=== PATIENT | male | born 1985 | race Caucasian/White ===

== ENCOUNTER 2020-06-23 13:29 | Outpatient (REF) | payer OTHER, SELFPAY | END 2020-06-23 13:30 | disposition home or self-care (01) | LOC: HO.LAB 13:29 | PROVIDERS: Visit Provider Internal Medicine | DX: Z20.822 Contact with and (suspected) exposure to COVID-19 (principal) | CPT/HCPCS: C9803; U0003; U0005 ==

== ENCOUNTER 2020-07-10 09:57 | Outpatient (REF) | payer OTHER, SELFPAY ==
--- NOTE | ~2020-07-10 | XR_ITS ---
EXAMINATION: XR CERVICAL SPINE CLINICAL INFORMATION: Neck pain COMPARISON: None TECHNIQUE: 3 views of the cervical spine were obtained. FINDINGS: Bone alignment is normal. No fracture or dislocation is seen. Disc spaces are normal. Prevertebral soft tissues are normal. XR/XR cervical spine 2V IMPRESSION: Unremarkable examination.
--- NOTE | ~2020-07-10 | XR_ITS ---
EXAMINATION: XR THORACOLUMBAR SPINE CLINICAL INFORMATION: Pain COMPARISON: None TECHNIQUE: 3 FINDINGS: There is mild curvature of the midthoracic spine to the right. Bone alignment is otherwise normal. No fracture or dislocation is seen. Disc spaces are normal. R spinal soft tissues are normal. XR/XR thoracic spine 2V IMPRESSION: Mild curvature of the midthoracic spine to the right.
--- NOTE | ~2020-07-10 | XR_ITS ---
EXAMINATION: XR CHEST CLINICAL INFORMATION: Cough COMPARISON: Previous chest x-ray most recent September 2015 TECHNIQUE: 2 views of the chest were obtained. FINDINGS: The cardiac and mediastinal contours are normal. The lungs are clear. There is no pleural effusion or pneumothorax. There is an old right posterior eighth rib fracture. Bony structures are otherwise unremarkable. XR/XR chest 2V IMPRESSION: No evidence for acute disease in the chest.
--- NOTE | ~2020-07-10 | XR_ITS ---
EXAMINATION: XR FOOT, LEFT CLINICAL INFORMATION: Pain COMPARISON: Previous x-ray June 2018 TECHNIQUE: AP, lateral, and oblique views of the left foot. FINDINGS: There is evidence of an old calcaneal fracture. No acute fracture or dislocation is seen. Joint spaces are normal. Soft tissues are normal. XR/XR foot LT min 3V IMPRESSION: Old calcaneal fracture. Otherwise unremarkable exam.
--- NOTE | ~2020-07-10 | XR_ITS ---
EXAMINATION: XR SHOULDER, BILATERAL CLINICAL INFORMATION: Pain. COMPARISON: None TECHNIQUE: Bilateral shoulders each 4 views. FINDINGS: Right shoulder: No fracture or dislocation. AC joint is intact. Glenohumeral joint space is maintained. No abnormal soft tissue calcification. Left shoulder: No fracture or dislocation. Glenohumeral joint space is maintained. AC joint is intact. No abnormal soft tissue calcification. XR/XR shoulder LT min 2V IMPRESSION: No evidence of acute osseous abnormality.
--- NOTE | ~2020-07-10 | XR_ITS ---
EXAMINATION: XR SHOULDER, BILATERAL CLINICAL INFORMATION: Pain. COMPARISON: None TECHNIQUE: Bilateral shoulders each 4 views. FINDINGS: Right shoulder: No fracture or dislocation. AC joint is intact. Glenohumeral joint space is maintained. No abnormal soft tissue calcification. Left shoulder: No fracture or dislocation. Glenohumeral joint space is maintained. AC joint is intact. No abnormal soft tissue calcification. XR/XR shoulder RT min 2V IMPRESSION: No evidence of acute osseous abnormality.
[2020-07-10 11:06] LABS: Alanine Aminotransferase 22 U/L (0-40); Albumin Level 4.3 g/dL (3.5-5.0); Alkaline Phosphatase 109 U/L (39-117); Anion Gap 12 (12-20); Aspartate Amino Transferase 23 U/L (5-37); Bilirubin Total 0.5 mg/dL (0.0-1.0); Blood Urea Nitrogen 12 mg/dL (9-16); Calcium 9.4 mg/dL (8.4-10.2); Carbon Dioxide 28 mmol/L (22-29); Chloride 106 mmol/L (96-108); Cholesterol 150 mg/dL; Estimated Glomerular Filt Rate > 60; Glucose Fasting 99 mg/dL (60-99); HDL Cholesterol 33 mg/dL; LDL Cholesterol Calculated 92 mg/dl; Potassium 4.5 mmol/L (3.3-5.1); Sodium 141 mmol/L (135-145); Total Protein 7.1 g/dL (6.5-8.0); Triglycerides 129 mg/dL
[2020-07-11 07:55] LABS: SARS COV2 IgG Negative (Negative)
== END 2020-07-10 09:58 | disposition home or self-care (01) ==
LOC: HO.XRAY 09:57
PROVIDERS: PCP Internal Medicine; Visit Provider Internal Medicine
DX: M54.2 Cervicalgia (principal); R05 Cough; M25.512 Pain in left shoulder; M25.511 Pain in right shoulder; M79.672 Pain in left foot; M54.6 Pain in thoracic spine; E66.3 Overweight; E78.5 Hyperlipidemia, unspecified; Z20.822 Contact with and (suspected) exposure to COVID-19; Z01.84 Encounter for antibody response examination
CPT/HCPCS: 71046; 72040; 72070; 73030; 73630; 80053; 80061; 86769; U0003; U0005

== ENCOUNTER 2021-06-05 12:15 | Outpatient (REF) | payer OTHER, SELFPAY ==
[2021-06-05 12:49] LABS: COVID-19 Test Negative (Negative); IDNOW Serial# 08D9AD1C
== END 2021-06-05 12:16 | disposition home or self-care (01) ==
LOC: HO.LAB 12:15
PROVIDERS: Visit Provider Internal Medicine
DX: Z20.822 Contact with and (suspected) exposure to COVID-19 (principal)
CPT/HCPCS: 87635; C9803

== ENCOUNTER 2021-11-27 16:37 | Outpatient (REF) | payer OTHER, SELFPAY ==
[2021-11-27 17:26] LABS: Influenza A PCR NEGATIVE (Negative); Influenza B PCR NEGATIVE (Negative); Resp Syncy Virus RNA Qual PCR NEGATIVE (Negative); SARS COV2 PCR INHOUSE NEGATIVE (Negative)
== END 2021-11-27 16:38 | disposition home or self-care (01) ==
LOC: HO.LNP 16:37
DX: Z20.822 Contact with and (suspected) exposure to COVID-19 (principal); J06.9 Acute upper respiratory infection, unspecified
CPT/HCPCS: 0241U

== ENCOUNTER 2022-02-26 15:24 | Emergency (ER) | payer MEDICAID, SELFPAY ==
--- NOTE | ~2022-02-26 | XR_ITS ---
EXAMINATION: XR CHEST CLINICAL INFORMATION: Palpitation. Shortness of breath for 3 days. COMPARISON: Chest x-ray 03/11/2021 TECHNIQUE: 2 views of the chest were obtained. FINDINGS: No significant abnormality is noted involving the heart, lungs, mediastinum, bony thorax or soft tissues. XR/XR chest 2V IMPRESSION: Unremarkable examination.
[2022-02-26 15:52] VITALS: BP 127/78; PULSE 76; RESP 16; TEMP 37.2; O2SAT 98; BMI 27.2
--- NOTE | 2022-02-26 15:53 | ECG_ITS ---
Test Reason : PALPITATIONS/SHORTNESS OF BREATH X3 DAYS Blood Pressure : / mmHG Vent. Rate : 075 BPM Atrial Rate : 075 BPM P-R Int : 160 ms QRS Dur : 078 ms QT Int : 356 ms P-R-T Axes : 023 026 012 degrees QTc Int : 397 ms Normal sinus rhythm Normal ECG No previous ECGs available Referred By: Susan Caldwell Electronically Signed By:LOKI AWAN
--- NOTE | 2022-02-26 15:54 | ED_ITS ---
HPI - Arrhythmia/Palpitations General Chief Complaint: Arrhythmia/Palpitations <BRIELLE More - Last Filed: 02/26/22 15:55> Stated Complaint: chest pain <BRIELLE More - Last Filed: 02/26/22 15:55> Time Seen by Provider: 02/26/22 17:38 <BRIELLE More - Last Filed: 02/26/22 15:55> Source: patient and hourly sign language interpreter <BRIELLE Rucker Last Filed: 02/26/22 19:05> Mode of arrival: ambulatory <BRIELLE Rucker Last Filed: 02/26/22 19:05> Limitations: language barrier <BRIELLE Rucker Last Filed: 02/26/22 19:05> History of Present Illness HPI narrative: Patient is a 37 year old assigned male at with a history of GERD pres enting to the emergency department today with intermittent palpitations. Patient states that over the last few days he has had intermittent episodes of palpitations. Patient states that he has been under considerably more stress lately. Patient denies any dizziness, lightheadedness, abdominal pain, nausea, vomiting, fever, chills, blurry vision, double vision, loss of vision, chest pain, difficulty breathing, shortness of breath, back pain, night sweats, pain with urination, increased urinary frequency, increased urinary urgency, blood in his urine or stool, syncope or a near syncopal episode, recent trauma or falls, bowel incontinence, bladder incontinence, bowel retention, bladder retention, or any other complaints at this time. <BRIELLE Rucker - Last Filed: 02/26/22 19:05> MD complaint: heart racing <BRIELLE Rucker - Last Filed: 02/26/22 19:05> Onset (ago): day(s) <BRIELLE Rucker - Last Filed: 02/26/22 19:05> Duration: intermittent <BRIELLE Rucker Last Filed: 02/26/22 19:05> Severity: mild <BRIELLE Rucker Last Filed: 02/26/22 19:05> Associated symptoms: denies other symptoms <BRIELLE Rucker Last Filed: 02/26/22 19:05> Related Data Home Medications: Previous Rx's Medication Instructions Recorded benzonatate 200 mg capsule 200 mg PO TID PRN cough #30 caps 11/27/21 naproxen 500 mg tablet 500 mg PO BID PRN pain 30 days #60 11/29/21 tabs hydroxyzine HCl 25 mg tablet 25 mg PO ONCE PRN anxiety #14 tabs 02/26/22 <BRIELLE More Last Filed: 02/26/22 15:55> Allergies/Adverse Reactions: Allergies Allergy/AdvReac Type Severity Reaction Status Date / Time No Known Allergies Allergy Verified 11/27/21 13:40 [No Known Allergies*] <BRIELLE More Last Filed: 02/26/22 15:55> Review of Systems Constitutional: Constitutional: Reports no additional constitutional complaints, Denies chills, Denies fever(s) and Denies night sweats <BRIELLE Rucker Last Filed: 02/26/22 19:05> Eyes: Eyes: Reports no additional eye complaints, Denies blurry vision, Denies change in vision, Denies diplopia, Denies eye discharge, Denies loss of vision and Denies eye pain <BRIELLE Rucker Last Filed: 02/26/22 19:05> ENT: Denies dizziness <BRIELLE Rucker Last Filed: 02/26/22 19:05> Cardiovascular: Cardiovascular: Reports no additional cardiovascular complaints, Denies chest pain, Reports rapid heart rate, Denies lightheadedness, Denies Loss of Consciousness and Denies dyspnea <BRIELLE Rucker Last Filed: 02/26/22 19:05> Respiratory: Respiratory: Reports no additional respiratory complaints and Denies dyspnea <BRIELLE Rucker Last Filed: 02/26/22 19:05> Gastrointestinal: Gastrointestinal: Reports no additional gastrointestinal complaints, Denies abdominal pain, Denies melena, Denies hematochezia, Denies change in bowel habits and Denies change in stool character <BRIELLE Rucker Last Filed: 02/26/22 19:05> Genitourinary: Genitourinary: Reports no additional male genitourinary complaints, Denies hematuria, Denies oliguria, Denies difficulty urinating, Denies dysuria, Denies urinary frequency, Denies urinary hesitancy, Denies urinary incontinence and Denies urinary urgency <BRIELLE Rucker - Last Filed: 02/26/22 19:05> Musculoskeletal: Musculoskeletal: Reports no additional musculoskeletal complaints, Denies numbness and Denies tingling <BRIELLE Rucker - Last Filed: 02/26/22 19:05> Neurologic: Denies dizziness, Denies loss of vision, Denies numbness and Denies tingling <BRIELLE Rucker - Last Filed: 02/26/22 19:05> Psychiatric: Psychiatric: Reports no additional psychiatric complaints <BRIELLE Rucker - Last Filed: 02/26/22 19:05> Endocrine: Endocrine: Reports no additional endocrine complaints <BRIELLE Rucker - Last Filed: 02/26/22 19:05> Hematologic/Lymphatic: Hematologic/Lymphatic: Reports no additional hematologic/lymphatic complaints <BRIELLE Rucker - Last Filed: 02/11 09/02 19:05> Allergic/Immunologic: Allergic/Immunologic: Reports no additional allergic/immunologic complaints <BRIELLE Rucker - Last Filed: 02/26/22 19:05> [facility] Past Medical History Attestation statement: The following information was validated with the patient. <BRIELLE Rucker - Last Filed: 02/26/22 19:05> Source: old records reviewed and nursing notes reviewed <BRIELLE Rucker - Last Filed: 02/26/22 19:05> Medical History: Medical History Blurry vision Cough GERD (gastroesophageal reflux disease) Hand numbness Left calcaneal fracture Left foot pain Nausea Neck pain Overweight Physical exam Shoulder pain Smoker Viral upper respiratory tract infection with cough <BRIELLE More - Last Filed: 02/26/22 15:55> Surgical History: Surgical History No pertinent past surgical history <BRIELLE Mroe - Last Filed: 02/26/22 15:55> Family History Family History: Family History Father Cirrhosis of liver Mother Diabetes <BRIELLE More - Last Filed: 02/26/22 15:55> Social History Social History: Social History Housing: Apartment Alcohol intake: never Patient Tobacco Use Status: Current everyday Tobacco user Tobacco use type: Cigarette Cigarettes Per Day: 10 e-Cigarette/Vaping Use: Never Used Second Hand Smoke Exposure: No Advance Directives: No Advance Directives Information Provided: No service: No Current occupational status: other <BRIELLE More - Last Filed: 02/26/22 15:55> Physical Exam Vital Signs: Vital Signs: Last Vital Signs Temp 98.9 F 02/26/22 15:52 Pulse 76 02/26/22 15:52 Resp 16 02/26/22 15:52 BP 127/78 02/26/22 15:52 Pulse Ox 98 02/26/22 15:52 O2 Del Method 02/26/22 15:52 BMI result Body Mass Index 27.2 <BRIELLE More - Last Filed: 02/26/22 15:55> Vital Signs: Last Vital Signs Temp 98.9 F 02/26/22 15:52 Pulse 76 02/26/22 15:52 Resp 16 02/26/22 15:52 BP 127/78 02/26/22 15:52 Pulse Ox 98 02/26/22 15:52 O2 Del Method 02/26/22 15:52 BMI result Body Mass Index 27.2 <BRIELLE Rucker - Last Filed: 02/26/22 19:05> Const: General: cooperative, no acute distress, alert and awake <BRIELLE Rucker - Last Filed: 02/26/22 19:05> Nutritional Appearance: well nourished <BRIELLE Rucker - Last Filed: 1 04/29/21 19:05> Orientation/consciousness: patient oriented x3 <BRIELLE Rucker - Last Filed: 02/26/22 19:05> Limitations: no limitations <BRIELLE Rucker - Last Filed: 02/26/22 19:05> HEENT: Head: Yes normal to inspection and Yes atraumatic <BRIELLE Rucker - Last Filed: 02/26/22 19:05> Ears: hearing grossly normal bilaterally and external ears normal <BRIELLE Rucker - Last Filed: 02/26/22 19:05> General nose exam: Normal external nose present, no nasal discharge noted and no epistaxis <Amaya Rain ND - Last Filed: 02/26/22 19:05> Face and sinus: Yes normal facial exam, No abrasion and No laceration <Amaya Rain ND - Last Filed: 02/26/22 19:05> Mouth: Normal oral and palatal mucosa present, no drooling and no muffled voice <Amaya Dietrichteresa ND - Last Filed: 02/26/22 19:05> Eyes: General: appearance normal, both eyes and all related structures <Amaya Dietrichteresa ND - Last Filed: 02/26/22 19:05> Periorbital: periorbital findings normal <Amaya Dietrichteresa ND - Last Filed: 02/26/22 19:05> Eyelids: Yes eyelids normal <Amaya Dietrichtersea ND - Last Filed: 02/26/22 19:05> Conjunctivae: conjunctivae normal <Amaya Dietrichteresa ND - Last Filed: 02/26/22 19:05> Pupils: Equal, round and reactive pupils present <Amaya Dietrichteresa ND - Last Filed: 02/26/22 19:05> EOM: EOMs intact bilaterally <Amaya Dietrichteresa ND - Last Filed: 02/26/22 19:05> Neck: Neck: Yes normal visual inspection, Yes full ROM and Yes no lymphadenopathy <Amaya Dietrichteresa ND - Last Filed: 02/26/22 19:05> Chest: Chest palpation & inspection: normal inspection of the chest <Amaya Briseyda ND - Last Filed: 02/26/22 19:05> Resp: Effort & Inspection: normal respiratory effort and able to speak in complete sentences <Amaya Dietrichteresa ND - Last Filed: 02/26/22 19:05> Auscultation: clear to auscultation bilaterally <Amaya Dietrichteresa ND - Last Filed: 02/26/22 19:05> Cardio: Rate: regular rate <Amaya Briseyda ND - Last Filed: 02/26/22 19:05> Rhythm: regular rhythm <Amaya Briseyda ND - Last Filed: 02/26/22 19:05> GI: Inspection: Yes normal to inspection <Amaya RainBRIELLE - Last Filed: 02/26/22 19:05> Neuro: General: patient oriented x3 and moves all extremities <Amaya RainBRIELLE - Last Filed: 02/26/22 19:05> Cranial nerves: Yes Equal, round and reactive pupils present <Amaya RainBRIELLE - Last Filed: 02/26/22 19:05> Cognition (Neuro): normal cognition <Amaya DietrichBRIELLE moore - Last Filed: 02/26/22 19:05> Motor exam (neuro): 5/5 motor strength present throughout <Amaya RainBRIELLE - Last Filed: 02/26/22 19:05> Sensory Exam: Normal double simultaneous stimulation for sensation <Amaya DietrichBRIELLE moore - Last Filed: 02/26/22 19:05> Coordination: [id number] test normal <Amaya RainBRIELLE - Last Filed: 02/26/22 19:05> Extrem: General: Yes normal to inspection, Yes full ROM and Yes capillary refill normal <Amaya RainBRIELLE - Last Filed: 02/26/22 19:05> Psych: Appearance: grossly normal <Amaya RainBRIELLE - Last Filed: 02/26/22 19:05> Mental Status: mental status grossly normal <Amaya DietrichBRIELLE moore - Last Filed: 02/26/22 19:05> Affect: normal affect <Amaya DietrichBRIELLE moore - Last Filed: 02/26/22 19:05> Attitude: cooperative <Amaya DietrichBRIELLE moore - Last Filed: 02/26/22 19:05> Thought process: Normal thought process present <Amaya DietrichBRIELLE moore - Last Filed: 02/26/22 19:05> Thought content: Normal thought content present <Amaya DietrichBRIELLE moore - Last Filed: 02/26/22 19:05> Insight: Good insight present (Psych) <Amayabc DietrichBRIELLE moore - Last Filed: 02/26/22 19:05> Course Course Course Narrative: RME-16PM - 37yM c PMHx of GERD who is presenting to the ER with complaints of palpitations for the past 3 days with associated shortness of breath. Reports intermittent dizziness. Denies any change in vision, jaw pain, nausea/vomiting, chest pain, dyspnea on exertion, orthopnea, abdominal pain, diarrhea constipation, lower extremity edema or calf tenderness or any other symptoms complaints or concerns at this time. Plan: labs, EKG, chest x-ray, COVID/RSV/flu swab. Patient stable sent back to the waiting room for further evaluation treatment to the main ER. <BRIELLE More - Last Filed: 02/26/22 15:55> Medical Decision Making Medical Decision Making [facility] Narrative: Patient is a 37 year old assigned male at with a history of GERD presenting to the emergency department today with intermittent palpitations. Patient's physical exam was unremarkable. Patient's blood work was unremarkable. Patient's EKG was unremarkable. Patient's chest x-ray showed no acute process. I explained my physical exam findings as well as all test results to the patient. I answered all questions asked by the patient. I stressed the importance of the patient taking his medication as prescribed. I stressed the importance of the patient following up with his primary care provider and a internet marketing assistant. I stressed the importance of the patient returning to the emergency department immediately if his symptoms were to worsen or if he were to develop any dizziness, shortness of breath, difficulty breathing, chest pain, blurry vision, loss of vision, nausea, vomiting, abdominal pain, fever, chills, back pain, or any other complaints. Patient verbalized agreement and understanding with this treatment plan and discharge. <BRIELLE Rucker - Last Filed: 02/26/22 19:05> Differential Diagnosis Differential Diagnoses: The differential diagnosis associated with the presentation includes <BRIELLE Rucker - Last Filed: 02/26/22 19:05> palpitations, anxiety <BRIELLE Rucker - Last Filed: 02/26/22 19:05> Lab Data [facility] Lab Attestation statement: I reviewed the patient's lab results. <BRIELLE Rucker - Last Filed: 02/26/22 19:05> Result Diagrams: : 02/26/22 16:50 02/26/22 16:50 <BRIELLE More - Last Filed: 02/26/22 15:55> Labs: Lab Results 02/26/22 02/26/22 02/26/22 Range/Units 16:50 16:50 16:50 WBC 11.4 H (4.8-10.8) X10*3/uL RBC 5.21 (4.60-5.80) X10*6/uL Hgb 13.9 L (14.0-18.0) g/dl Hct 42.7 (42.0-52.0) % MCV 82.0 (80.0-98.0) fL MCH 26.7 L (27.0-33.0) pg MCHC 32.6 (31.0-36.0) g/dl RDW 13.2 (11.0-16.0) % Plt Count 308 (160-400) X10*3/uL MPV 10.0 (9.4-12.4) fL Immature Gran % (Auto) 0.4 (0.0-0.4) % Neut % (Auto) 55.5 (45-73) % Lymph % (Auto) 30.6 (20-40) % [place] % (Auto) 8.2 (2-11) % Eos % (Auto) 4.9 H (0-4) % Baso % (Auto) 0.4 (0-2) % Lymph # (Auto) 3.5 (1.2-4.9) X10*3/uL [place] # (Auto) 0.9 (0.1-1.2) X10*3/uL Eos # (Auto) 0.6 H (0.0-0.4) X10*3/uL Baso # (Auto) 0.0 (0.0-0.2) X10*3/uL Abs Immat Gran (auto) 0.05 H (0.00-0.03) X10*3/uL Absolute Neuts (auto) 6.3 (2.0-8.3) x10*3/uL Absolute Nucleated RBC 0.000 (0.0-0.012) X10*3/uL Nucleated RBC % (auto) 0.0 (0.0-0.2) /100WBC PT 12.0 (10.0-13.1) SEC INR 1.0 (0.9-1.1) Sodium 140 (135-145) mmol/L Potassium 4.2 (3.3-5.1) mmol/L Chloride 105 (96-108) mmol/L Carbon Dioxide 27 (22-29) mmol/L Anion Gap 12 (12-20) BUN 13 (9-16) mg/dL Creatinine 0.98 (0.5-1.4) mg/dL Estim Creat Clear Calc 104.4 Estimated GFR > 60 Random Glucose 90 (60-115) mg/dL Calcium 9.6 (8.4-10.2) mg/dL Magnesium 1.9 (1.6-2.6) mg/dL Total Bilirubin 0.2 (0.0-1.0) mg/dL AST 26 (5-37) U/L ALT 38 (0-40) U/L Alkaline Phosphatase 124 H (39-117) U/L Troponin I High Sens (<3.5-35.0) ng/L Total Protein 7.1 (6.5-8.0) g/dL Albumin 4.4 (3.5-5.0) g/dL TSH 1.42 (0.32-4.0) uIU/mL Urine Color Urine Appearance Urine pH (5.0-9.0) Ur Specific Nettie (1.005-1.025) Urine Protein (Neg-Trace) mg/dL Urine Glucose (UA) (Negative) mg/dL Urine Ketones (Negative) mg/dL Urine Blood (Negative) Urine Nitrite (Negative) Ur Leukocyte Esterase (Negative) Influenza Type A (PCR) (Negative) Influenza Type B (PCR) (Negative) RSV RNA Qual (PCR) (Negative) SARS-CoV-2 RNA (RT-PCR) (Negative) 02/26/22 02/26/22 02/26/22 Range/Units 16:50 16:50 17:05 WBC (4.8-10.8) X10*3/uL RBC (4.60-5.80) X10*6/uL Hgb (14.0-18.0) g/dl Hct (42.0-52.0) % MCV (80.0-98.0) fL MCH (27.0-33.0) pg MCHC (31.0-36.0) g/dl RDW (11.0-16.0) % Plt Count (160-400) X10*3/uL MPV (9.4-12.4) fL Immature Gran % (Auto) (0.0-0.4) % Neut % (Auto) (45-73) % Lymph % (Auto) (20-40) % [place] % (Auto) (2-11) % Eos % (Auto) (0-4) % Baso % (Auto) (0-2) % Lymph # (Auto) (1.2-4.9) X10*3/uL [place] # (Auto) (0.1-1.2) X10*3/uL Eos # (Auto) (0.0-0.4) X10*3/uL Baso # (Auto) (0.0-0.2) X10*3/uL Abs Immat Gran (auto) (0.00-0.03) X10*3/uL Absolute Neuts (auto) (2.0-8.3) x10*3/uL Absolute Nucleated RBC (0.0-0.012) X10*3/uL Nucleated RBC % (auto) (0.0-0.2) /100WBC PT (10.0-13.1) SEC INR (0.9-1.1) Sodium (135-145) mmol/L Potassium (3.3-5.1) mmol/L Chloride (96-108) mmol/L Carbon Dioxide (22-29) mmol/L Anion Gap (12-20) BUN (9-16) mg/dL Creatinine (0.5-1.4) mg/dL Estim Creat Clear Calc Estimated GFR Random Glucose (60-115) mg/dL Calcium (8.4-10.2) mg/dL Magnesium (1.6-2.6) mg/dL Total Bilirubin (0.0-1.0) mg/dL AST (5-37) U/L ALT (0-40) U/L Alkaline Phosphatase (39-117) U/L Troponin I High Sens < 3.5 (<3.5-35.0) ng/L Total Protein (6.5-8.0) g/dL Albumin (3.5-5.0) g/dL TSH (0.32-4.0) uIU/mL Urine Color Yellow Urine Appearance Clear Urine pH 5.5 (5.0-9.0) Ur Specific Nettie 1.015 (1.005-1.025) Urine Protein Negative (Neg-Trace) mg/dL Urine Glucose (UA) Negative (Negative) mg/dL Urine Ketones Negative (Negative) mg/dL Urine Blood Negative (Negative) Urine Nitrite Negative (Negative) Ur Leukocyte Esterase Negative (Negative) Influenza Type A (PCR) NEGATIVE (Negative) Influenza Type B (PCR) NEGATIVE (Negative) RSV RNA Qual (PCR) NEGATIVE (Negative) SARS-CoV-2 RNA (RT-PCR) NEGATIVE (Negative) <BRIELLE More - Last Filed: 02/26/22 15:55> Lab Results 02/26/22 02/26/22 02/26/22 Range/Units 16:50 16:50 16:50 WBC 11.4 H (4.8-10.8) X10*3/uL RBC 5.21 (4.60-5.80) X10*6/uL Hgb 13.9 L (14.0-18.0) g/dl Hct 42.7 (42.0-52.0) % MCV 82.0 (80.0-98.0) fL MCH 26.7 L (27.0-33.0) pg MCHC 32.6 (31.0-36.0) g/dl RDW 13.2 (11.0-16.0) % Plt Count 308 (160-400) X10*3/uL MPV 10.0 (9.4-12.4) fL Immature Gran % (Auto) 0.4 (0.0-0.4) % Neut % (Auto) 55.5 (45-73) % Lymph % (Auto) 30.6 (20-40) % [place] % (Auto) 8.2 (2-11) % Eos % (Auto) 4.9 H (0-4) % Baso % (Auto) 0.4 (0-2) % Lymph # (Auto) 3.5 (1.2-4.9) X10*3/uL [place] # (Auto) 0.9 (0.1-1.2) X10*3/uL Eos # (Auto) 0.6 H (0.0-0.4) X10*3/uL Baso # (Auto) 0.0 (0.0-0.2) X10*3/uL Abs Immat Gran (auto) 0.05 H (0.00-0.03) X10*3/uL Absolute Neuts (auto) 6.3 (2.0-8.3) x10*3/uL Absolute Nucleated RBC 0.000 (0.0-0.012) X10*3/uL Nucleated RBC % (auto) 0.0 (0.0-0.2) /100WBC PT 12.0 (10.0-13.1) SEC INR 1.0 (0.9-1.1) Sodium 140 (135-145) mmol/L Potassium 4.2 (3.3-5.1) mmol/L Chloride 105 (96-108) mmol/L Carbon Dioxide 27 (22-29) mmol/L Anion Gap 12 (12-20) BUN 13 (9-16) mg/dL Creatinine 0.98 (0.5-1.4) mg/dL Estim Creat Clear Calc 104.4 Estimated GFR > 60 Random Glucose 90 (60-115) mg/dL Calcium 9.6 (8.4-10.2) mg/dL Magnesium 1.9 (1.6-2.6) mg/dL Total Bilirubin 0.2 (0.0-1.0) mg/dL AST 26 (5-37) U/L ALT 38 (0-40) U/L Alkaline Phosphatase 124 H (39-117) U/L Troponin I High Sens (<3.5-35.0) ng/L Total Protein 7.1 (6.5-8.0) g/dL Albumin 4.4 (3.5-5.0) g/dL TSH 1.42 (0.32-4.0) uIU/mL Urine Color Urine Appearance Urine pH (5.0-9.0) Ur Specific [place]ettie (1.005-1.025) Urine Protein (Neg-Trace) mg/dL Urine Glucose (UA) (Negative) mg/dL Urine Ketones (Negative) mg/dL Urine Blood (Negative) Urine Nitrite (Negative) Ur Leukocyte Esterase (Negative) Influenza Type A (PCR) (Negative) Influenza Type B (PCR) (Negative) RSV RNA Qual (PCR) (Negative) SARS-CoV-2 RNA (RT-PCR) (Negative) 02/26/22 02/26/22 02/26/22 Range/Units 16:50 16:50 17:05 WBC (4.8-10.8) X10*3/uL RBC (4.60-5.80) X10*6/uL Hgb (14.0-18.0) g/dl Hct (42.0-52.0) % MCV (80.0-98.0) fL MCH (27.0-33.0) pg MCHC (31.0-36.0) g/dl RDW (11.0-16.0) % Plt Count (160-400) X10*3/uL MPV (9.4-12.4) fL Immature Gran % (Auto) (0.0-0.4) % Neut % (Auto) (45-73) % Lymph % (Auto) (20-40) % [place] % (Auto) (2-11) % Eos % (Auto) (0-4) % Baso % (Auto) (0-2) % Lymph # (Auto) (1.2-4.9) X10*3/uL [place] # (Auto) (0.1-1.2) X10*3/uL Eos # (Auto) (0.0-0.4) X10*3/uL Baso # (Auto) (0.0-0.2) X10*3/uL Abs Immat Gran (auto) (0.00-0.03) X10*3/uL Absolute Neuts (auto) (2.0-8.3) x10*3/uL Absolute Nucleated RBC (0.0-0.012) X10*3/uL Nucleated RBC % (auto) (0.0-0.2) /100WBC PT (10.0-13.1) SEC INR (0.9-1.1) Sodium (135-145) mmol/L Potassium (3.3-5.1) mmol/L Chloride (96-108) mmol/L Carbon Dioxide (22-29) mmol/L Anion Gap (12-20) BUN (9-16) mg/dL Creatinine (0.5-1.4) mg/dL Estim Creat Clear Calc Estimated GFR Random Glucose (60-115) mg/dL Calcium (8.4-10.2) mg/dL Magnesium (1.6-2.6) mg/dL Total Bilirubin (0.0-1.0) mg/dL AST (5-37) U/L ALT (0-40) U/L Alkaline Phosphatase (39-117) U/L Troponin I High Sens < 3.5 (<3.5-35.0) ng/L Total Protein (6.5-8.0) g/dL Albumin (3.5-5.0) g/dL TSH (0.32-4.0) uIU/mL Urine Color Yellow Urine Appearance Clear Urine pH 5.5 (5.0-9.0) Ur Specific [place] 1.015 (1.005-1.025) Urine Protein Negative (Neg-Trace) mg/dL Urine Glucose (UA) Negative (Negative) mg/dL Urine Ketones Negative (Negative) mg/dL Urine Blood Negative (Negative) Urine Nitrite Negative (Negative) Ur Leukocyte Esterase Negative (Negative) Influenza Type A (PCR) NEGATIVE (Negative) Influenza Type B (PCR) NEGATIVE (Negative) RSV RNA Qual (PCR) NEGATIVE (Negative) SARS-CoV-2 RNA (RT-PCR) NEGATIVE (Negative) <BRIELLE Rucker - Last Filed: 02/26/22 19:05> Independent Interpretation I performed an independent interpretation of an: EKG <BRIELLE Rucker - Last Filed: 02/26/22 19:05> Interpretation: Vent. Rate: 075 BPM ? ? Atrial Rate: 075 BPM P-R Int: 160 ms? QRS Dur: 078 ms QT Int: 356 ms ? ? ? P-R-T Axes: 023 026 012 degrees QTc Int: 397 ms ? Normal sinus rhythm Normal ECG No previous ECGs available DD/ 1656 <BRIELLE Rucker - Last Filed: 02/26/22 19:05> Radiology Impression Discussion of test interpretation with radiology: I have reviewed the radiologist's reading. <BRIELLE Rucker - Last Filed: 02/26/22 19:05> Radiologist Impression: EXAMINATION: XR CHEST CLINICAL INFORMATION: Palpitation. Shortness of breath for 3 days. COMPARISON: Chest x-ray 03/11/2021 TECHNIQUE: 2 views of the chest were obtained. FINDINGS: No significant abnormality is noted involving the heart, lungs, mediastinum, bony thorax or soft tissues. XR/XR chest 2V IMPRESSION: Unremarkable examination. Dictated By: Lee Purcell MD Signed By: Electronically signed by Lee Purcell MD 02/26/22 1617 <BRIELLE Rucker - Last Filed: 02/26/22 19:05> Discharge Plan Discharge Clinical Impression: Heart palpitations <BRIELLE More Last Filed: 02/26/22 15:55> Patient Disposition: Home, Self-Care <BRIELLE More Last Filed: 02/26/22 15:55> Instructions: Heart Palpitations (DC) <BRIELLE More Last Filed: 02/26/22 15:55> Additional Instructions: Follow up with your primary care provider and a cardiologst. Return to the emergency department immediately if your symptoms worsen or if you develop any dizziness, shortness of breath, difficulty breathing, chest pain, blurry vision, loss of vision, nausea, vomiting, abdominal pain, fever, chills, back pain, or any other complaints. Becky un seguimiento con rosales proveedor de atenci?n primaria y un cardi?logo. Regrese al departamento de emergencias de inmediato si alexia s?ntomas empeoran o si presenta mareos, falta de aire, dificultad para respirar, dolor de pecho, visi?n borrosa, p?rdida de la visi?n, n?useas, v?mitos, dolor abdominal, fiebre, escalofr?os, dolor de espalda o cualquier otras quejas. <BRIELLE More - Last Filed: 02/26/22 15:55> Prescriptions: New hydroxyzine HCl 25 mg tablet 25 mg PO ONCE PRN (Reason: anxiety) Qty: 14 0RF No Action naproxen 500 mg tablet 500 mg PO BID PRN (Reason: pain) 30 Days Qty: 60 0RF benzonatate 200 mg capsule 200 mg PO TID PRN (Reason: cough) Qty: 30 0RF <BRIELLE More Last Filed: 02/26/22 15:55> Referrals: [facility] [Provider Group] (Call to establish and follow up with a internet marketing assistant. Llame para establecer y hacer un seguimiento con tomas cardi?loga.) Shayla Waggoner MD [Primary Care Provider] - <BRIELLE More - Last Filed: 02/26/22 15:55> Stand Alone Forms: Work/School Release <BRIELLE More - Last Filed: 02/26/22 15:55> Interventions: ED Discharge Assessment Last Done: 02/26/22 18:12 <BRIELLE More - Last Filed: 02/26/22 15:55> Discharge Date/Time: 02/26/22 18:14 <BRIELLE More - Last Filed: 02/26/22 15:55> Print Language: Slovenian <BRIELLE More - Last Filed: 02/26/22 15:55>
[2022-02-26 16:58] LABS: MANUAL DIFF FLAG NO
[2022-02-26 17:04] LABS: Basophils Percent Auto 0.4 % (0-2); Eosinophils Absolute Auto 0.6 X10*3/uL (0.0-0.4); Eosinophils Percent Auto 4.9 % (0-4); Hematocrit 42.7 % (42.0-52.0); Hemoglobin 13.9 g/dl (14.0-18.0); Imm Gran Abs Auto 0.05 X10*3/uL (0.00-0.03); Imm Gran Pct Auto 0.4 % (0.0-0.4); Lymphocytes Absolute Auto 3.5 X10*3/uL (1.2-4.9); Lymphocytes Percent Auto 30.6 % (20-40); Mean Corpuscular HGB Conc 32.6 g/dl (31.0-36.0); Mean Corpuscular Hemoglobin 26.7 pg (27.0-33.0); Monocytes Absolute Auto 0.9 X10*3/uL (0.1-1.2); Monocytes Percent Auto 8.2 % (2-11); Neutrophils Absolute Auto 6.3 x10*3/uL (2.0-8.3); Neutrophils Percent Auto 55.5 % (45-73); Platelet Count 308 X10*3/uL (160-400); Red Blood Count 5.21 X10*6/uL (4.60-5.80); Red Cell Distribution Width 13.2 % (11.0-16.0); White Blood Count 11.4 X10*3/uL (4.8-10.8)
[2022-02-26 17:23] LABS: Appearance Urine Clear; Color Urine Yellow; Glucose Urine UA Negative (Negative); Leukocyte Esterase Urine Negative (Negative); Nitrite Urine Negative (Negative); PH 5.5 (5.0-9.0); Specific Gravity - Urine 1.015 (1.005-1.025); Urine Blood Negative (Negative); Urine Ketones Negative (Negative); Urine Protein Negative (Neg-Trace)
[2022-02-26 17:26] LABS: Troponin-I High Sensitivity < 3.5 ng/L (<3.5-35.0)
[2022-02-26 17:36] LABS: Influenza A PCR NEGATIVE (Negative); Influenza B PCR NEGATIVE (Negative); Resp Syncy Virus RNA Qual PCR NEGATIVE (Negative); SARS COV2 PCR INHOUSE NEGATIVE (Negative)
[2022-02-26 17:42] LABS: Alanine Aminotransferase 38 U/L (0-40); Albumin Level 4.4 g/dL (3.5-5.0); Alkaline Phosphatase 124 U/L (39-117); Anion Gap 12 (12-20); Aspartate Amino Transferase 26 U/L (5-37); Bilirubin Total 0.2 mg/dL (0.0-1.0); Blood Urea Nitrogen 13 mg/dL (9-16); Calcium 9.6 mg/dL (8.4-10.2); Carbon Dioxide 27 mmol/L (22-29); Chloride 105 mmol/L (96-108); Creatinine Clr Calc Pharmacy 104.4; Estimated Glomerular Filt Rate > 60; Glucose Random 90 mg/dL (60-115); Magnesium 1.9 mg/dL (1.6-2.6); Potassium 4.2 mmol/L (3.3-5.1); Sodium 140 mmol/L (135-145); TSH reflex Free T4 1.42 uIU/mL (0.32-4.0); Total Protein 7.1 g/dL (6.5-8.0)
== END 2022-02-26 18:14 | disposition home or self-care (01) ==
PROVIDERS: Physician Assistant Medical; Emergency Provider Student in an Organized Health Care Education/Training Program; PCP Internal Medicine
DX: R00.2 Palpitations (principal); Z20.822 Contact with and (suspected) exposure to COVID-19; F17.210 Nicotine dependence, cigarettes, uncomplicated
CPT/HCPCS: 0241U; 36415; 71046; 80053; 81003; 83735; 84443; 84484; 85025; 85610; 93005; 99283

== ENCOUNTER 2022-10-10 06:50 | Emergency (ER) | payer MEDICAID, SELFPAY ==
[2022-10-10 07:02] VITALS: BP 138/92; PULSE 92; RESP 18; TEMP 36.1; O2SAT 98; BMI 31.4
--- NOTE | 2022-10-10 07:31 | ED.EYEPROB ---
HPI - Eye Problem General Chief complaint: Eye Problems Stated complaint: Eye issues Time Seen by Provider: 10/10/22 07:12 Source: patient and behavioral health clinician Mode of arrival: ambulatory History of Present Illness HPI Narrative: 37-year-old male who states that he was shaving last night and got shaving cream into both eyes, rinse the mouth a little bit that and went to sleep and woke up this morning with significant bilateral eye pain in burning that is worse with opening his eyes and denies any contact lens use or traumatic injury to the eye. Related Data Previous Rx's Medication Instructions Recorded benzonatate 200 mg capsule 200 mg PO TID PRN cough #30 caps 11/27/21 naproxen 500 mg tablet 500 mg PO BID PRN pain 30 days #60 11/29/21 tabs hydroxyzine HCl 25 mg tablet 25 mg PO ONCE PRN anxiety #14 tabs 02/26/22 Allergies Allergy/AdvReac Type Severity Reaction Status Date / Time No Known Allergies Allergy Verified 10/10/22 07:05 [No Known Allergies*] Review of Systems Review of Systems: Pertinent positives and negatives as stated in HPI PMFSH Past Medical History Source: nursing notes reviewed Medical History Blurry vision Cough GERD (gastroesophageal reflux disease) Hand numbness Left calcaneal fracture Left foot pain Nausea Neck pain Overweight Physical exam Shoulder pain Smoker Viral upper respiratory tract infection with cough Surgical History No pertinent past surgical history Family History Family History Father Cirrhosis of liver Mother Diabetes Social History Social History Housing: Apartment Alcohol intake: never Patient Tobacco Use Status: Current everyday Tobacco user Tobacco use type: Cigarette Cigarettes Per Day: 10 e-Cigarette/Vaping Use: Never Used Second Hand Smoke Exposure: No Advance Directives: No Advance Directives Information Provided: Yes service: No Current occupational status: other Physical Exam Vital Signs: Vital Signs: Last Vital Signs Temp 97 F 10/10/22 07:02 Pulse 92 10/10/22 07:02 Resp 18 10/10/22 07:02 BP 138/92 H 10/10/22 07:02 Pulse Ox 98 10/10/22 07:02 O2 Del Method Room Air 10/10/22 07:02 BMI result Body Mass Index 31.4 VITAL SIGNS: Reviewed. GENERAL: Well developed, well nourished, in no acute distress. HEAD: Normocephalic/atraumatic EYES: PERRLA, EOMI, bilateral conjunctival injection, no nystagmus, no mid distance paralyze pupil, no cloudiness of the pupil EARS: Ext canals without abnormality NOSE: Nares patent bilateral OROPHARYNX: no oral lesions noted, posterior pharynx clear NECK: Supple, no adenopathy LUNGS: Normal breath sounds. No adventitious sounds or accessory muscle use. SpO2<98> CARDIOVASCULAR: Regular rate and rhythm without noted murmurs ABDOMEN: Soft, non-tender, non-distended with bowel sounds. MUSCULOSKELETAL: No tenderness, deformities, or effusions noted on gross inspection. EXTREMITIES: No cyanosis, clubbing or edema. SKIN: Inspection of the skin reveals no rashes NEUROLOGIC: Alert and oriented x 4. Strength and sensation to light touch were grossly intact x 4. Medications Administered Generic Name Dose Route Start Last Admin Trade Name Freq PRN Reason Stop Dose Admin Sodium Chloride 1,000 mls @ 999 mls/hr 10/10/22 07:45 10/10/22 08:07 Ns IV 10/10/22 08:45 Infused .Q1H1M ESTEFANY Infusion Medical Decision Making Medical Decision Making [facility] Narrative: 37-year-old male with history and clinical presentation of having gotten shaving cream into both eyes and went sleep and then woke up with burning sensation in both eyes. Will flush with 1 L of normal saline and re-evaluate, low clinical suspicion for any significant ocular injury. On re-evaluation patient is feeling much improved after a 500 cc I irrigation and will further receive recommendations to uses an [id number] eyedrops for additional symptom relief. Differential Diagnosis Differential Diagnoses: The differential diagnosis associated with the presentation includes Please see the discussion above Discharge Plan Discharge Clinical Impression: Pain of both eyes Patient Disposition: Home, Self-Care Instructions: Eye Pain (ED) Additional Instructions: 1. Reanudar todos los medicamentos caseros seg?n lo prescrito. 2. Recomiende las gotas oculares Visine de venta melissa para los ojos irritados y util?celas faustino se indica en el empaque exterior. 3. El lunes por la ma?jillian recomiende seguimiento con cualquier oftalm?logo. Regrese a la karime de emergencias si los s?ntomas empeoran. 1. Resume all home medications as prescribed. 2. Recommend hkjz-thi-sruouuz Visine eyedrops for your irritated eyes and use as directed on the outside packaging. 3. On Tuesday morning recommend follow-up with any eye doctor. Return to the ER for any worsening symptoms. Prescriptions: No Action naproxen 500 mg tablet 500 mg PO BID PRN (Reason: pain) 30 Days Qty: 60 0RF hydroxyzine HCl 25 mg tablet 25 mg PO ONCE PRN (Reason: anxiety) Qty: 14 0RF benzonatate 200 mg capsule 200 mg PO TID PRN (Reason: cough) Qty: 30 0RF Referrals: [facility] [Primary Care Provider] - Print Language: Moroccan
[2022-10-10] MEDS: 0.9 % Sodium Chloride 1,000 ML 999 ML IV (07:50)
--- NOTE | 2022-10-10 08:09 | PC.NURSE ---
this nurse began eye irrigation with the patient, this patient briefly tolerated irrigation in intervals, eyes were flushed as well as the patient tolerated. patient stated he is now able to open his eyes but feels as if he has sand in them but feels better than previously, pt refusing further irrigation, pt asking if there is anything numbing for his eyes until this passes, provider notified, pt to be discharged shortly.
[2022-10-10] MEDS: hydrOXYzine HCL 25 MG TABLET PO (08:21)
[2022-10-10 08:28] VITALS: BP 141/86; PULSE 93; RESP 18; TEMP 36.2; O2SAT 96
== END 2022-10-10 08:42 | disposition home or self-care (01) ==
PROVIDERS: Emergency Provider Student in an Organized Health Care Education/Training Program
DX: H57.13 Ocular pain, bilateral (principal); F17.210 Nicotine dependence, cigarettes, uncomplicated; Z71.6 Tobacco abuse counseling
CPT/HCPCS: 99283; 99284

== ENCOUNTER 2022-12-03 11:19 | Outpatient (REF) | payer MEDICAID, SELFPAY ==
[2022-12-03 13:09] LABS: MANUAL DIFF FLAG NO
[2022-12-03 13:26] LABS: Basophils Absolute Auto 0.1 X10*3/uL (0.0-0.2); Basophils Percent Auto 0.6 % (0-2); Eosinophils Absolute Auto 0.3 X10*3/uL (0.0-0.4); Eosinophils Percent Auto 3.9 % (0-4); Hematocrit 42.5 % (42.0-52.0); Hemoglobin 14.1 g/dl (14.0-18.0); Imm Gran Abs Auto 0.04 X10*3/uL (0.00-0.03); Imm Gran Pct Auto 0.5 % (0.0-0.4); Lymphocytes Absolute Auto 2.4 X10*3/uL (1.2-4.9); Mean Corpuscular HGB Conc 33.2 g/dl (31.0-36.0); Mean Corpuscular Volume 81.3 fL (80.0-98.0); Mean Platelet Volume 10.5 fL (9.4-12.4); Monocytes Absolute Auto 0.6 X10*3/uL (0.1-1.2); Monocytes Percent Auto 7.6 % (2-11); Neutrophils Absolute Auto 4.7 x10*3/uL (2.0-8.3); Neutrophils Percent Auto 58.4 % (45-73); Platelet Count 326 X10*3/uL (160-400); Red Blood Count 5.23 X10*6/uL (4.60-5.80); Red Cell Distribution Width 13.8 % (11.0-16.0); White Blood Count 8.1 X10*3/uL (4.8-10.8)
[2022-12-03 14:13] LABS: Alanine Aminotransferase 84 U/L (0-40); Albumin Level 4.2 g/dL (3.5-5.0); Alkaline Phosphatase 144 U/L (39-117); Anion Gap 13 (12-20); Aspartate Amino Transferase 40 U/L (5-37); Bilirubin Direct 0.1 mg/dL (0.0-0.5); Bilirubin Total 0.4 mg/dL (0.0-1.0); Blood Urea Nitrogen 12 mg/dL (9-16); Calcium 9.2 mg/dL (8.4-10.2); Carbon Dioxide 21 mmol/L (22-29); Chloride 109 mmol/L (96-108); Estimated Glomerular Filt Rate > 60; Glucose Random 106 mg/dL (60-115); Potassium 3.7 mmol/L (3.3-5.1); Sodium 139 mmol/L (135-145); Total Protein 7.4 g/dL (6.5-8.0)
[2022-12-03 14:25] LABS: TSH reflex Free T4 1.01 uIU/mL (0.32-4.0)
[2022-12-05 22:28] LABS: TS Negative Control Passed; TS Panel A 0; TS Panel B 0; TS Positive Control Passed; TSpotTB Negative (Negative)
[2022-12-06 03:28] LABS: Syphilis Screen Nonreactive (Nonreactive)
[2022-12-06 03:37] LABS: HIV AB/AG Nonreactive (Nonreactive); HIV Num 1 0.05 S/CO (0.00-0.99); ~HepC Num1 0.07 S/CO (0.00-0.79); ~Hepatitis C Antibody Nonreactive (Nonreactive)
== END 2022-12-03 11:20 | disposition home or self-care (01) ==
LOC: HO.HHCL 11:19
PROVIDERS: Visit Provider Emergency Medicine
DX: R00.2 Palpitations (principal); Z11.1 Encounter for screening for respiratory tuberculosis
CPT/HCPCS: 36415; 80048; 80076; 84443; 85025; 86481; 86780; 86803; 87389

== ENCOUNTER 2023-04-19 13:44 | Outpatient (AMB) | payer MEDICAID, SELFPAY ==
--- NOTE | 2023-04-19 13:57 | A.OFFVIS_ITS ---
Intake Vital Signs 04/19/23 14:00 Height 5 ft 11 in Weight 240 lb BMI 33.5 BP 112/69 Blood Pressure Location Lt brachial Position Sitting Pulse 87 Intake Visit Reasons: Gastroesophageal reflux disease (GERD) Intake Note: New consult for GERD. Patient cc: Painful GERD with burning sensation and throat discomfort, abdominal pain with bloating, and some Nauseas. Denies any BM problems. 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 Pt reports intermittent heartburn for years but since the last few months reports getting worse. HAs been having more nausea and vomiting. Night time sx. No blood in emesis. Reports gettign triggered with spicy. Pain is mostly epigastric, no radiation. Used to smoke 2 PPD - quit a year ago. No etOH. Takes motrin occ for abd pain. [facility] Medical History Blurry vision Cough GERD (gastroesophageal reflux disease) Hand numbness Left calcaneal fracture Left foot pain Nausea Neck pain Overweight Physical exam Shoulder pain Smoker Viral upper respiratory tract infection with cough Surgical History No pertinent past surgical history Family History Father Cirrhosis of liver Mother Diabetes Social History Housing: Apartment Alcohol intake: never Patient Tobacco Use Status: Current everyday Tobacco user Tobacco use type: Cigarette Cigarettes Per Day: 10 e-Cigarette/Vaping Use: Never Used Second Hand Smoke Exposure: No service: No Current occupational status: other Review of Systems Const All systems reviewed & are unremarkable except as noted in HPI and below Physical Exam Vital Signs: Last Vital Signs Pulse 87 04/19/23 14:00 BP 112/69 04/19/23 14:00 BMI result Body Mass Index 33.5 Const General: cooperative and no acute distress Orientation/consciousness: patient oriented x3 HEENT Head: Yes normocephalic and Yes other (No scleral icterus ) Resp Effort & Inspection: normal respiratory effort and able to speak in complete sen tences Auscultation: clear to auscultation bilaterally Cardio Rate: regular rate Rhythm: regular rhythm GI Palpation (GI): Soft to palpation and No hepatosplenomegaly present Percussion: Yes normal to percussion Auscultation: normal bowel sounds Rectal Exam - Male: Yes deferred Skin General skin exam: no rashes or lesions noted and turgor normal Neuro General: patient oriented x3, gait normal and moves all extremities Extrem General: Yes full ROM and Yes no pedal edema Psych Appearance: well kempt Mental Status: mental status grossly normal Affect: normal affect Assessment & Plan Assessment & Plan (1) Abdominal pain: Code(s): R10.9 - Unspecified abdominal pain (2) Nausea: Code(s): R11.0 - Nausea (3) GERD (gastroesophageal reflux disease): Code(s): K21.9 - Gastro-esophageal reflux disease without esophagitis Qualifiers: Esophagitis presence: esophagitis presence not specified Qualified Code(s): K21.9 - Gastro-esophageal reflux disease without esophagitis Plan Ddx include GERD, EoE, PUD, celiac, gallstones. Plan: - Labs and US ordered as below - Omeprazole 20 BID - EGD to be booked in 6-8 weeks. Pt to hold omeprazole x 2 weeks before the EGD. - Avoid NSAIDs Follow up after EGD Orders: Orders TSH reflex Free T4 Today K21.9 - Gastro-esophageal reflux disease without esophagitis Liver Panel Today K21.9 - Gastro-esophageal reflux disease without esophagitis Complete Blood Count no Diff Today K21.9 - Gastro-esophageal reflux disease without esophagitis Immunoglobulin A Today K21.9 - Gastro-esophageal reflux disease without esophagitis Transglutaminase IgA Today K21.9 - Gastro-esophageal reflux disease without esophagitis US abdomen complete Today R10.9 - Unspecified abdominal pain Medications: New omeprazole 20 mg PO BID 30 days 60 caps 1RF Discontinued naproxen Discontinued Reason: Doctor's Order 500 mg PO BID 30 days PRN 60 tabs 0RF pain Quality Reporting (2019) Adult ([facility] 138/2//69) Smoking risk assessment performed?: Yes Patient Tobacco Use Status: Current everyday Tobacco user Coding Level of Care Code New Pt Level 4 (24439) Diagnoses Abdominal pain R10.9 Nausea R11.0 Gastroesophageal reflux disease, unspecified whether esophagitis present K21.9 Esophagitis presence: esophagitis presence not specified
[2023-04-19 14:00] VITALS: BP 112/69; PULSE 87; BMI 33.5
== END 2023-04-19 15:14 | disposition home or self-care (01) ==
PROVIDERS: Referring Provider Internal Medicine; Visit Provider Internal Medicine
DX: R10.9 Unspecified abdominal pain (principal); R11.0 Nausea; K21.9 Gastro-esophageal reflux disease without esophagitis
CPT/HCPCS: 99204

== ENCOUNTER → 2023-04-19 13:44 | Outpatient (BNVA) | payer MEDICAID, SELFPAY | PROVIDERS: Visit Provider Internal Medicine | DX: K21.9 Gastro-esophageal reflux disease without esophagitis (principal); R10.9 Unspecified abdominal pain; R11.0 Nausea | CPT/HCPCS: 99202 ==

== ENCOUNTER 2023-04-28 10:48 | Outpatient (REF) | payer MEDICAID, SELFPAY ==
[2023-04-28 11:48] LABS: Hematocrit 43.3 % (42.0-52.0); Hemoglobin 14.4 g/dl (14.0-18.0); Mean Corpuscular HGB Conc 33.3 g/dl (31.0-36.0); Mean Corpuscular Hemoglobin 26.7 pg (27.0-33.0); Mean Corpuscular Volume 80.3 fL (80.0-98.0); Mean Platelet Volume 10.2 fL (9.4-12.4); Platelet Count 368 X10*3/uL (160-400); Red Blood Count 5.39 X10*6/uL (4.60-5.80); Red Cell Distribution Width 13.7 % (11.0-16.0); White Blood Count 9.4 X10*3/uL (4.8-10.8)
[2023-04-28 12:24] LABS: Alanine Aminotransferase 88 U/L (0-40); Albumin Level 4.2 g/dL (3.5-5.0); Alkaline Phosphatase 129 U/L (39-117); Aspartate Amino Transferase 40 U/L (5-37); Bilirubin Direct 0.1 mg/dL (0.0-0.5); Bilirubin Total 0.4 mg/dL (0.0-1.0); Total Protein 7.5 g/dL (6.5-8.0)
[2023-04-28 12:35] LABS: HBS Num1 > 1000.00 mIU/mL (0-7.99); HBc Num1 0.15 S/CO (0.00-0.79); HBsAGNum1 0.51 S/CO (0.00-0.99); Hepatitis A Antibody IgM 0.21 Index (0-0.79); Hepatitis B Core Antibody Nonreactive (Nonreactive); Hepatitis B Surface Antigen Negative (Negative); ~Hepatitis A Antibody IgM Nonreactive (Nonreactive); ~Hepatitis B Surface Antibody REACTIVE (Nonreactive); ~Hepatitis C Antibody Nonreactive (Nonreactive)
[2023-04-29 14:39] LABS: Immunoglobulin A 201 mg/dL (47-310)
[2023-04-29 21:03] LABS: Transglutaminase IgA <1.0 U/mL
== END 2023-04-28 10:49 | disposition home or self-care (01) ==
LOC: HO.HHCL 10:48
PROVIDERS: Referring Provider Internal Medicine; Visit Provider Internal Medicine
DX: R10.9 Unspecified abdominal pain (principal); K21.9 Gastro-esophageal reflux disease without esophagitis; R79.89 Other specified abnormal findings of blood chemistry
CPT/HCPCS: 36415; 80076; 82784; 84443; 85027; 86364; 86704; 86706; 86709; 86803; 87340

== ENCOUNTER 2023-05-10 08:00 | Day surgery (SDC) | payer MEDICAID, SELFPAY ==
[2023-05-10 08:16] VITALS: BMI 33.4
[2023-05-10 08:23] VITALS: BP 127/81; PULSE 77; RESP 16; TEMP 36.7; O2SAT 97
--- NOTE | 2023-05-10 08:26 | P.OP_ITS ---
Operative Note Operative Note Date of Service: 05/10/23 Narrative: Procedure: Esophagogastroduodenoscopy Endoscopist: Loreto Wiggins MD Indication: Abd pain Anesthesia Provider: Dr Sehrrie Gray Anesthesia Type: MAC ?? EGD Procedure:?? The procedure, indications, preparation and potential complications were reviewed with the patient, who indicated understanding and gave written informed consent to proceed. A physical exam was performed. The endoscope was introduced through the mouth, and advanced to the second part of duodenum. The mucosa was carefully examined on slow withdrawal of the endoscope. The patient tolerated the procedure well. There were no immediate complications.? ? EGD Findings:? * Esophagus:? Normal mucosa noted in the entire esophagus. The Z line was at 40 cm. Middle and lower esophagus forceps biopsies were obtained to rule out eosinophilic esophagitis. * Stomach:? Normal mucosa was noted in the stomach. Random cold forceps gastric biopsies were taken to rule out H Pylori infection. * Duodenum:? Normal mucosa was noted in the whole of the examined duodenum. Cold forceps biopsies were taken from duodenal bulb and second portion of the duodenum to rule out celiac sprue. ? EGD Impressions:? * Normal esophagus (biopsy) * Normal stomach (biopsy) * Normal duodenum (biopsy) ?? Recommendations:?? * Follow biopsy results. Our office will call or send a letter with results within 7-10 days. * No evidence of reflux/erosive esophagitis noted on exam today. * If H pylori +, patient will be prescribed eradication therapy followed by test of cure. * Avoid NSAIDs. * Has pending work up (see office note) if negative, can consider barium swallow vs EGD with Chow Above has been reviewed with the patient.
--- NOTE | 2023-05-10 08:27 | MHC.SHP ---
Pre-Procedural Eval Section A - 24 Hr Update-Section A only Date of Service: 05/10/23 The patient is an INPATIENT: No The patient has been examined within 24 hours of the surgical procedure. The History & Physical has been completed within 30 days and I have reviewed it.: Yes Section B - Complete if H&P > 30 days Chief Complaint: Epigastric pain Allergies: Allergies Allergy/AdvReac Type Severity Reaction Status Date / Time No Known Allergies Allergy Verified 05/10/23 08:16 [No Known Allergies*] Plan Diagnosis/Plan: Unchanged I have reviewed the history and physical and performed a pertinent physical examination on my patient. No changes have occurred unless specified. Time Spent With Patient Time: Total time managing care of this patient today ____ minutes.
[2023-05-10] MEDS: Lactated Ringers 1,000 ML 50 ML IVCONT (08:38)
--- NOTE | 2023-05-10 09:20 | HO.ANESPROP2 ---
[facility] Active Problems Active Problems: All Active Problems (Updated 05/10/23 @ 08:16 by Kimberly Sellers, RN) Elevated LFTs (Acute) Abdominal pain (Acute) Viral upper respiratory tract infection with cough (Acute) Hand numbness (Acute) Physical exam (Acute) Left calcaneal fracture (Acute) Left foot pain (Acute) Nausea (Acute) GERD (gastroesophageal reflux disease) (Acute) Overweight (Acute) Blurry vision (Acute) Neck pain (Acute) Shoulder pain (Acute) Cough (Acute) Smoker (Acute) Past Medical History Medical History Anxiety Fatty liver Sinusitis HTN (hypertension) Viral upper respiratory tract infection with cough Hand numbness Physical exam Left calcaneal fracture Left foot pain Nausea GERD (gastroesophageal reflux disease) Overweight Blurry vision Neck pain Shoulder pain Cough Smoker Family History Family History Father Cirrhosis of liver Mother Diabetes Surgical History Surgical History No pertinent past surgical history History of Problems with Anesthesia: No Social History Social History Housing: Apartment Alcohol intake: never Patient Tobacco Use Status: Former Tobacco user Quit Date: 2 yrs ago Tobacco use type: Cigarette Cigarettes Per Day: 10 e-Cigarette/Vaping Use: Never Used Second Hand Smoke Exposure: No Use of substances other than those prescribed or required for medical reasons: Yes Substance Use Frequency: Daily Are you DNR?: No Advance Directives: No Advance Directives Information Provided: Yes service: No Current occupational status: other Meds Allergies Allergy/AdvReac Type Severity Reaction Status Date / Time No Known Allergies Allergy Verified 05/10/23 08:16 [No Known Allergies*] Active Medications: Current Medications Lactated Ringer's (Lr) 1,000 mls @ 50 mls/hr IVCONT .Q20H ESTEFANY Last Admin: 05/10/23 08:38 Dose: 50 mls/hr Home Medications Medication Instructions Recorded Confirmed Last Taken Type amlodipine 2.5 mg tablet 2.5 mg PO DAILY 05/10/23 05/10/23 Unknown History Exam Height,Weight and Vital Signs: Height 5 ft 11 in Weight 108.771 kg Last Vital Signs Temp 98.1 F 05/10/23 08:23 Pulse 77 02/27/24 08:23 Resp 16 05/10/23 08:23 BP 127/81 05/10/23 08:23 Pulse Ox 97 05/10/23 08:23 O2 Del Method Room Air 05/10/23 08:23 Airway Mallampati Class: II TM Dist: >3cm Neck ROM: Full Heart: RRR Lungs: CTA Assessment and Plan Assessment Anesthesia Assessment: Anesthesia Plan Discussed and Smoking Cess. Discussed Final Anesthetic Review History of Problems with Anesthesia: No NPO: Yes ASA Class: II Final Preanesthetic Review: Meds/Allgs Chart Reviewed, Consent Obtained/Reviewed and Anes Risks/Benef Reviewed Patient Risk: Low Procedure Risk: Low Anesthetic Plan Anesthetic Plan: MAC: Disposition: Standard PACU
[2023-05-10 10:01] VITALS: BP 124/87; PULSE 93; RESP 16; TEMP 36.6; O2SAT 93
[2023-05-10 10:16] VITALS: BP 130/94; PULSE 92; RESP 16; TEMP 36.6; O2SAT 96
--- NOTE | 2023-05-10 10:48 | PC.NURSE ---
discharge instructions completed with biomedical repair technician present.
--- NOTE | 2023-05-10 15:26 | HO.POSTANES ---
Post Anesthesia Evaluation Post Anesthesia Evaluation Date of Service: 05/10/23 Vital Signs: Vital Signs Temp Pulse Resp BP Pulse Ox O2 Del Method 05/10/23 10:16 97.9 F 92 16 130/94 H 96 Room Air 05/10/23 10:01 97.8 F 93 16 124/87 93 Room Air 05/10/23 08:23 98.1 F 77 16 127/81 97 Room Air Anesthesia: Monitored Mental Status: Awake Pain Control: Satisfactory Nausea/Vomiting: None Hydration: Adequate Anesthesia-Related Issues: No Anes. Related Issues
== END 2023-05-10 10:35 | disposition home or self-care (01) ==
PROVIDERS: PCP Internal Medicine; Visit Provider Internal Medicine
PROC: 0DJ08ZZ Inspection of Upper Intestinal Tract, Via Natural or Artificial Opening Endoscopic (ICD-10-PCS; CPT 43235; principal; 2023-05-10 09:20)
DX: K29.50 Unspecified chronic gastritis without bleeding (principal); B96.81 Helicobacter pylori [H. pylori] as the cause of diseases classified elsewhere; K21.9 Gastro-esophageal reflux disease without esophagitis; I10 Essential (primary) hypertension; K76.0 Fatty (change of) liver, not elsewhere classified; E66.3 Overweight; Z68.33 Body mass index [BMI] 33.0-33.9, adult; Z79.899 Other long term (current) drug therapy; Z87.891 Personal history of nicotine dependence
CPT/HCPCS: 43239; 88305; 88313; 88342; J1596; J2704

== ENCOUNTER → 2023-05-10 08:00 | Outpatient (BNV) | payer MEDICAID, SELFPAY | PROVIDERS: PCP Internal Medicine; Visit Provider Internal Medicine | DX: R10.9 Unspecified abdominal pain (principal); K29.80 Duodenitis without bleeding; K29.70 Gastritis, unspecified, without bleeding | CPT/HCPCS: 43239 ==

== ENCOUNTER 2023-05-25 12:38 | Outpatient (AMB) | payer MEDICAID, SELFPAY ==
--- NOTE | 2023-05-25 12:40 | MHC.OFFVIS ---
Intake Vital Signs 05/25/23 12:53 Height 5 ft 11 in Weight 235 lb 14.314 oz BMI 32.9 BP 113/64 Blood Pressure Location Lt brachial Position Sitting Pulse 70 Intake Visit Reasons: f/u egd Intake Note: Moustapha presents in the office as a follow up EGD. CC: states that he has the baceria and would like to discuss that. Allergies No Known Allergies [No Known Allergies*] Allergy (Verified 05/25/23 12:54) HPI HPI Comments History of Present Illness Details 38 y.o M with PMH of who is here for follow up after EGD. 04/19/23: Pt reports intermittent heartburn for years but since the last few months reports getting worse. HAs been having more nausea and vomiting. Night time sx. No blood in emesis. Reports gettign triggered with spicy. Pain is mostly epigastric, no radiation. Used to smoke 2 PPD - quit a year ago. No etOH. Takes motrin occ for abd pain. 05/10/23 - EGD: Normal esophagus (biopsy) Normal stomach (biopsy) Normal duodenum (biopsy) Path: A. Duodenum, biopsy: Duodenal mucosa with predominantly preserved villi and focal mild features of chronic/non-specific duodenitis. B. Stomach, random, biopsy: Chronic Helicobacter gastritis with focal minimal activity; negative for intestinal metaplasia and dysplasia. C. Esophagus, lower, biopsy: Squamous mucosa with no specific change; no columnar mucosa present. D. Esophagus, middle, biopsy: Squamous mucosa with no specific change; no columnar mucosa present 05/25/23: Reports pain and heartburn better with omeprazole. EGD results reviewed. H Pylori positive without any GIM on random bx. PFSH Medical History Anxiety Fatty liver Sinusitis HTN (hypertension) Viral upper respiratory tract infection with cough Hand numbness Physical exam Left calcaneal fracture Left foot pain Nausea GERD (gastroesophageal reflux disease) Overweight Blurry vision Neck pain Shoulder pain Cough Smoker Surgical History No pertinent past surgical history Family History Father Cirrhosis of liver Mother Diabetes Social History Housing: Apartment Alcohol intake: never Patient Tobacco Use Status: Former Tobacco user Quit Date: 2 yrs ago Tobacco use type: Cigarette Cigarettes Per Day: 10 e-Cigarette/Vaping Use: Never Used Second Hand Smoke Exposure: No service: No Current occupational status: other Review of Systems Const All systems reviewed & are unremarkable except as noted in HPI and below Physical Exam Vital Signs: Last Vital Signs Pulse 70 05/25/23 12:53 BP 113/64 05/25/23 12:53 BMI result Body Mass Index 32.9 Gen appear: NAD HEENT: nonicteric, no cervical lymphadenopathy Chest: CTA CVS: Regular S1/S2 Abd: soft, nontender, nondistended, bowel sounds + Ext: no peripheral edema Neuro: A/Ox3, noted to move all extremities spontaneously Psych: interacting appropriately Assessment & Plan Assessment & Plan (1) Abdominal pain: Code(s): R10.9 - Unspecified abdominal pain (2) H. pylori infection: Code(s): A04.8 - Other specified bacterial intestinal infections Plan Reviewed EGD findings of H pylori gastritis. Eradication treatment with bismuth based quad therapy Rxed x 14 days After 2 weeks STOP all these meds and then do the breath test as scheduled. instructions reviewed with pt and printed out as well. VANIA to be administered 2-3 weeks AFTER tx has been completed Follow up in 6 weeks Medications: New tetracycline 500 mg PO QID 56 caps 0RF 14 days metronidazole 250 mg PO QID 56 tabs 0RF 14 days bismuth subsalicylate 2 tabs PO QID 112 tabs 0RF 14 days omeprazole 20 mg PO BID 28 caps 0RF 14 days Patient Instructions: Please take the following medications for H pylori for 14 days: 1. Flagyl 1 tab 4 times a day (may cause stomach upset, do not take alcohol while on this) 2. Bismuth 2 tabs 4 times a day (may turn stools black) 3. Tetracycline 500 4 times a day (may cause stomach upset and sun sensitivity) 4. Omeprazole 40mg 2 times a day After 2 weeks STOP all these meds and then do the breath test as scheduled. Quality Reporting (2019) Adult ([facility] 138/05/05/68) Smoking risk assessment performed?: Yes Patient Tobacco Use Status: Former Tobacco user Coding Level of Care Code Est Pt Level 4 (72776) Diagnoses Abdominal pain R10.9 H. pylori infection A04.8
[2023-05-25 12:53] VITALS: BP 113/64; PULSE 70; BMI 32.9
== END 2023-05-25 13:14 | disposition home or self-care (01) ==
PROVIDERS: PCP Internal Medicine; Visit Provider Internal Medicine
DX: R10.9 Unspecified abdominal pain (principal); A04.8 Other specified bacterial intestinal infections
CPT/HCPCS: 99214

== ENCOUNTER → 2023-05-25 12:38 | Outpatient (BNVA) | payer MEDICAID, SELFPAY | PROVIDERS: PCP Internal Medicine; Visit Provider Internal Medicine | DX: K29.70 Gastritis, unspecified, without bleeding (principal); B96.81 Helicobacter pylori [H. pylori] as the cause of diseases classified elsewhere; Z98.890 Other specified postprocedural states | CPT/HCPCS: 99212 ==

== ENCOUNTER 2023-06-03 10:39 | Outpatient (REF) | payer MEDICAID, SELFPAY ==
--- NOTE | ~2023-06-03 | XR_ITS ---
EXAMINATION: XR KNEE, RIGHT CLINICAL INFORMATION: Right knee pain for 4 days COMPARISON: None available. TECHNIQUE: Three views of the right knee. FINDINGS: No fracture or joint effusion. Alignment is anatomic. Joint spaces are maintained. No abnormal soft tissue calcification. XR/XR knee RT 3V IMPRESSION: Normal right knee.
[2023-06-03 12:31] LABS: Alanine Aminotransferase 50 U/L (0-40); Albumin Level 4.1 g/dL (3.5-5.0); Alkaline Phosphatase 138 U/L (39-117); Aspartate Amino Transferase 34 U/L (5-37); Bilirubin Direct 0.2 mg/dL (0.0-0.5); Bilirubin Total 0.4 mg/dL (0.0-1.0); Cholesterol 127 mg/dL (<200); HDL Cholesterol 36 mg/dL (>40); LDL Cholesterol Calculated 69 mg/dL (<100); Total Protein 7.4 g/dL (6.5-8.0); Triglycerides 111 mg/dL (<150)
== END 2023-06-03 10:40 | disposition home or self-care (01) ==
LOC: HO.HHCL 10:39
PROVIDERS: Visit Provider Internal Medicine
DX: M25.561 Pain in right knee (principal); R79.89 Other specified abnormal findings of blood chemistry
CPT/HCPCS: 36415; 73562; 80061; 80076

== ENCOUNTER 2024-11-07 21:36 | Emergency (ER) | payer MEDICAID, SELFPAY ==
[2024-11-07 21:46] VITALS: BP 129/82; PULSE 102; RESP 18; TEMP 37.2; O2SAT 94; BMI 34.7
[2024-11-07 22:05] LABS: MANUAL DIFF FLAG NO
[2024-11-07 22:10] LABS: Hematocrit 40.0 % (42.0-52.0); Hemoglobin 13.6 g/dl (14.0-18.0); Imm Gran Abs Auto 0.11 X10*3/uL (0.00-0.03); Imm Gran Pct Auto 0.8 % (0.0-0.4); Lymphocytes Absolute Auto 4.0 X10*3/uL (1.2-4.9); Mean Corpuscular HGB Conc 34.0 g/dl (31.0-36.0); Mean Corpuscular Hemoglobin 27.0 pg (27.0-33.0); Mean Corpuscular Volume 79.5 fL (80.0-98.0); NRBC Abs Auto 0.000 X10*3/uL (0.0-0.012); NRBC Pct Auto 0.0 /100WBC (0.0-0.2); Platelet Count 365 X10*3/uL (160-400); Red Blood Count 5.03 X10*6/uL (4.60-5.80); White Blood Count 14.5 X10*3/uL (4.8-10.8)
[2024-11-07 22:20] LABS: Anion Gap 13 (12-20); Blood Urea Nitrogen 15 mg/dL (9-16); Calcium 9.0 mg/dL (8.4-10.2); Carbon Dioxide 23 mmol/L (22-29); Chloride 105 mmol/L (96-108); Creatinine Clr Calc Pharmacy 117.2; Estimated Glomerular Filt Rate > 60; Potassium 4.2 mmol/L (3.3-5.1); Sodium 137 mmol/L (135-145)
--- OUTSIDE RECORDS SUMMARY | 2024-11-08 00:58 | XMS_ITS | Clinical Summary ---
Author Organization [facility] Address [address] [place] [address] Care Team Providers Care Rib Matcher And Fitter Name Role Phone Unavailable Primary Care Provider Unavailabl e Source Comments PLEASE NOTE, if this patient is a minor, it may be UNLAWFUL to discuss sensitive information that is contained in these records (such as FAMILY PLANNING, MENTAL HEALTH or SUBSTANCE ABUSE) with the minor patient's parent or other person without the patient's specific authorization.[facility] Active Problems Problem Noted Date Diagnosed Date Anxiety 07/29/2015 Carpal tunnel syndrome of right wrist 07/29/2015 Chronic lower back pain 07/29/2015 Immunizations Immunization Administration Dates Next Due Moderna COVID-19 Vaccine, re d cap blue label, 12+ Primary Series 08/12/2020,07/14/2020 Social History Tobacco Use Types Packs/Day Years Used Date Smoking Tobacco: Never Assessed Social Connections Answer Date Recorded Social Connections and Isolation 0 11/05/2018 Financial Resource Strain Answer Date R ecorded Financial Resource Strain 0 2018 Stress Answer Date Recorded Stress 0 11/05/2018 Physical Activity Answer Date Recorded Physical Activity 0 11/05/2018 Food Insecurity Answer Date Recorded Food 0 11/05/2018 Transportation Needs Answer Date Record ed Transportation 0 11/05/2018 Housing Stability Answer Date Recorded Housing 0 11/05/2018 Safety and Environment Answer Date Laci rded Safety 0 11/05/2018 Utilities Answer Date Recorded Utilities 0 11/05/2018 Employment Answer Date Recorded Employment 0 11/05/2018 Sex and Gender Information Value Date Recorded Sex Assigned at Not on file Legal Sex Male 6:52 AM PDT Gender Identity Not on file Sexual Orientation Not on file Plan of Treatment Health Maintenance Due Date Last Done Comments Anxiety Screening 1983 Diabetes Screening 1983 Hepatitis C Screening 1983 Lipid Screening 1983 Tobacco Screening 1983 HIV Screening 1998 Hypertension Screening (#1) 2001 Imm-DTaP/Tdap/Td (1 - Tdap) 2002 Imm-Hepatitis B (1 of 3 - 19 + 3-dose series) 2002 [id number] (3 - 2023- season) 2023 021, 07/14/2020 Alcohol and Drug Screen 03/14/2024 Depression Annual Screen 03/14/2024 Imm-Influenza (#1) 2024 04/15/2020, 0 11/11/2015, 11/22/2011 Insurance [facility] [employer] Member Subscriber Plan / Payer (Ef fective 2020-Present) Name:Soy Moustapha Relation to Subscriber:Self Name:Moustapha Olivier Payer ID:[id number] Group ID:[id number] Type:Medicaid Address: [facility] [address] [place] [address]
--- OUTSIDE RECORDS SUMMARY | 2024-11-08 00:58 | XMS_ITS | Clinical Summary ---
Author Organization [facility] Address [address] [place] [address] Care Team Providers Care Fitness Supervisor Name Role Phone Unavailable Primary Care Provider Unavailabl e Social History Tobacco Use Types Packs/Day Years Used Date Smoking Tobacco: Never Assessed Sex and Gender Information Value Date Recorded Sex Assigned at Not on file Legal Sex Male 4:18 AM EST Gender Identity Not on file Sexual Orientation Not on file Plan of Treatment Health Maintenance Due Date Last Done Comments DTaP,Tdap,and Td Vaccines (1 - Tdap) 2002 Hepatitis B Vaccines (1 of 3 - 19+ 3-dose series) 2002 COVID-19 Vaccine (2023-2 5 season) 2023 Depression Screening 03/14/2024 Influenza Vaccine (#1) 2024 HIB Vaccines Aged Out No longer eligi ble based on patient's age to complete this topic HPV Vaccines Aged Out No longer eligi ble based on patient's age to complete this topic Hepatitis A Vaccines Aged Out No long er eligible based on patient's age to complete this topic IPV Vaccines Aged Out No longer eligi ble based on patient's age to complete this topic MMR Vaccines Aged Out No longer eligi ble based on patient's age to complete this topic Meningococcal ACWY Vaccine Aged Out N o longer eligible based on patient's age to complete this topic Meningococcal B Vaccine Aged Out No l onger eligible based on patient's age to complete this topic Pneumococcal Vaccine: Pediat rics (0 to 5 Years) and At-Risk Patients (6 to 49 Years) Aged Out No longer eligible b ased on patient's age to complete this topic RSV Immunization Patients Un chuy 20 months Aged Out No longer eligible b ased on patient's age to complete this topic Varicella Vaccines Aged Out No longer eligible based on patient's age to complete this topic
--- OUTSIDE RECORDS SUMMARY | 2024-11-08 00:58 | XMS_ITS | Encounter Summary ---
Author Organization [employer] Address [address] [facility] [address] [place] [address] Care Team Providers Care Nephrologist Name Role Phone Lee Tobias Primary Care Provider Unavail able Jessica Ferguson MD Primary Care Pro vider Jessica Gibbs MD Primary Care Provide r Encounter Details Date Type Department Care Team (Late st Contact Info) Description 07/16/2022 Orders Only [facility] [address] [place] [address] [phone] Benson Tesfaye MD [address] [place], [place] [phone] Social History Tobacco Use Types Packs/Day Years Used Date Smoking Tobacco: Former Cigarettes Smokeless Tobacco: Never Alcohol Use Standard Drinks/Week Comments Not Currently 0 (1 standard drink = 0.6 oz pur e alcohol) Depression Answer Date Recorded Patient Health Questionnaire-2 Score 0 04/23/2022 Sex and Gender Information Value Date Recorded Sex Assigned at Male 01/11/2022 10:39 AM EDT Legal Sex Male 10:39 AM EDT Gender Identity Choose not to disclose 10:39 AM EDT Sexual Orientation Choose not to disclose 2021 10:39 AM EDT documented as of this encounter Plan of Treatment Not on file documented as of this encounter Visit Diagnoses Not on filedocumented in this encounter Care Teams Nephrologist Relationship Specialty Start Date End Date Lee Tobias AGNP PCP - General Family Medicine 03/31/22 12/01/22 Jessica Ferguson MD [address] [place], [place] [phone] PCP - General Internal Medicine 12/02/22 02/20/23 Jessica Gibbs MD [address], [place] [phone] PCP - General Internal Medicine 04/19/23 documented as of this encounter
--- OUTSIDE RECORDS SUMMARY | 2024-11-08 00:58 | XMS_ITS | Encounter Summary ---
Author Organization [employer] Address [address] [facility] [address] [place] [address] Care Team Providers Care Freight Dispatcher Name Role Phone Jessica Gibbs MD Primary Care Provide r Reason for Visit * Reason Comments Med Refill Encounter Details Date Type Department Care Team ([facility] st Contact Info) Description 05/24/[address] [facility] [address] [place] [address] Benson Tesfaye MD [address] [place] [address] Opioid dependence, uncomplicated (CMS/HCC) Social History Tobacco Use Types Packs/Day Years Used Date Smoking Tobacco: Former Cigarettes Q uit: 2021 Passive Smoke Exposure: Past Smokeless Tobacco: Never Alcohol Use Standard Drinks/Week Comments Not Currently 0 (1 standard drink = 0.6 oz pur e alcohol) Housing Stability Answer Date Recorded What is your housing situation today? I have sean ferrell 12/31/[address] you li ve. Do you have problems with any of the following? None of the above 12/31/2022 Food Insecurity Answer Date Recorded Within the past 12 months, y ou worried that your food would run out before you got money to buy more: Never True 12/31/2022 Within the past 12 months,th e food you bought just didn't last and you didn't have enough money to get more: Never True Transportation Answer Date Recorded In the past 12 months, has l ack of transportation kept you from medical appts, meetings, work or from getting things needed for daily living? No 12/31/2022 Utilities Answer Date Recorded In the past 12 months, has t he electric, gas, oil or water company threatened to shut off services in your home? No 12/31/2022 Depression Answer Date Recorded Patient Health Questionnaire-2 [...] documented as of this encounter Visit Diagnoses Diagnosis Opioid dependence, uncomplicated (CMS/HCC) documented in this encounter Care Teams Freight Dispatcher Relationship Specialty Start Date End Date Jessica Gibbs MD [address] [place] [address] PCP - General Internal Medicine 04/19/23 documented as of this encounter
--- OUTSIDE RECORDS SUMMARY | 2024-11-08 00:58 | XMS_ITS | Encounter Summary ---
Author Organization [email or web address] Address [address] [facility] 7[address] [place] [address] Care Team Providers Care Assembler Tubing Name Role Phone Jessica Gibbs MD Primary Care Provide r Reason for Visit * Reason Comments Med Refill Encounter Details Date Type Department Care Team ([facility] st Contact Info) Description 11/08/[address] [facility] MEDICINE [address] [place] [address] Benson Tesfaye MD [address] [place] [address] Opioid dependence, uncomplicated (CMS/HCC) Social History Tobacco Use Types Packs/Day Years Used Date Smoking Tobacco: Former Cigarettes Q uit: 2021 Passive Smoke Exposure: Past Smokeless Tobacco: Never Alcohol Use Standard Drinks/Week Comments Not Currently 0 (1 standard drink = 0.6 oz pur e alcohol) Depression Answer Date Recorded Patient Health Questionnaire-9 Score 4 07/20/2023 Patient Health Questionnaire-9 Score 4 07/20/2023 Last PHQ-9: Questionnaire Data Not on file 0 07/20/2023 Housing Stability Answer Date Recorded What is [...] Answer Date Recorded Patient Health Questionnaire-2 Score 2 07/20/2023 Sex and Gender Information Value Date Recorded [...] dependence, uncomplicated (CMS/HCC) documented in this encounter Additional Health Concerns Assessment Noted Time PHQ-9 Depression Total Score: 4 07/20/19 10:54 AM EDT documented as of this encounter Care Teams Assembler Tubing Relationship Specialty Start Date End Date Jessica Gibbs MD [address] [place] [phone] PCP - General Internal Medicine 04/19/23 documented as of this encounter
--- OUTSIDE RECORDS SUMMARY | 2024-11-08 00:58 | XMS_ITS | Encounter Summary ---
Author Organization [employer] Address [address] [facility] [address] [place] [address] Care Team Providers Care Route Deliverer Name Role Phone Jessica iGbbs MD Primary Care Provide r Reason for Visit * Reason Onset Date Comments Nurse Triage 05/31/2023 Encounter Details Date Type Department Care Team ([facility] st Contact Info) Description 05/31/2023 Telephone [facility] MED[facility]INE [address] [place] [address] Jessica Gibbs MD [address] [place], [place] [phone] Nurse Triage Social History Tobacco Use Types Packs/Day Years [...] AM EDT documented as of this encounter Miscellaneous Notes * Telephone Encounter - Gail Marie - 05/31/2023 2:56 PM EDT Symptoms: Dizziness, Vision Loss or Change Outcome: Schedule an appointment to be seen within 24 hours Reason: Caller denied all higher acuity questions The caller accepted this outcome Mozambican speaker documented in this encounter Plan of Treatment Not on file documented as of this encounter Visit Diagnoses Not on filedocumented in this encounter Care Teams Route Deliverer Relationship Specialty Start Date End Date Jessica Gibbs MD [address] [place] [address] PCP - General Internal Medicine 04/19/23 documented as of this encounter
--- OUTSIDE RECORDS SUMMARY | 2024-11-08 00:58 | XMS_ITS | Encounter Summary ---
Author Organization [employer] Address [address] [place] [phone] Care Team Providers Care Electric Bath Attendant Name Role Phone Lee Tobias Primary Care Provider Unavail able Jessica Ferguson MD Primary Care Pro vider Jessica Gibbs MD Primary Care Provide r Encounter Details Date Type Department Care Team (Late st Contact Info) Description 02/16/2022 Abstract [facility] MEDICINE [address] [place] [address] Provider, MD Ariel Social History Tobacco Use Types Packs/Day Years [...] on filedocumented in this encounter Care Teams Electric Bath Attendant Relationship Specialty Start Date End Date Lee Tobias AGNP PCP - General Family Medicine 03/31/22 12/01/22 Jessica Ferguson MD [address] [place] [address] PCP - General Internal Medicine 12/02/22 02/20/23 Jessica Gibbs MD [address] [place] [address] PCP - General Internal Medicine 04/19/23 documented as of this encounter
--- OUTSIDE RECORDS SUMMARY | 2024-11-08 00:58 | XMS_ITS | Clinical Summary ---
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 1 kit 04/23/19 23 Active docusate sodium (Colace) 100 MG capsuleIndications :Uncomplicated opioid dependence (CMS/HCC) TAKE 1 CAPSULE BY MOUTH TWICE DAILY IN THE MORNING AND AT BEDTIME NEEDED FOR CONSTIPATION. 180 capsule 2 09/22/19 23 Active azelastine (Astelin) 0.1 % nasal sprayIndications:C hronic sinusitis, unspecified location Administer 1 spray into each nostril 2 times daily. Use in each nostril as directed 30 mL 12 10/07/19 23 Active hydrOXYzine HCl (Atarax) 50 MG tablet TAKE 1 TABLET BY ORAL ROUTE 4X/DAY NEEDED FOR ANXIETY 12/09/19 22 Active naloxone (Narcan) 4 mg/0.1 mL nasal spray FOR SUSPECTED OPIOID OVERDOSE. SPRAY 0.1mL IN ONE NOSTRIL. REPEAT IN ALTERNATE NOSTRIL 2-3 MINUTES IF NEEDED. SEEK MEDICAL ATTENTION IMMEDIATELY EVEN IF PATIENT RESPONDS. 12/02/19 22 Active sucralfate (Carafate) 1 g tablet TAKE 1 TABLET BY MOUTH TWICE DAILY ON AN EMPTY STOMACH 1 HOUR BEFORE A MEAL AND AT BEDTIME 11/09/19 23 Active fluticasone (Flonase) 50 MCG/ACT nasal spray USE 1-2 SPRAYS IN EACH NOSTRIL EVERY DAY NEEDED 02/10/20 Active melatonin 5 MG tabletIndications: Primary insomnia TAKE 1 TABLET BY MOUTH ONCE DAILY AT BEDTIME 30 tablet 2 07/11/19 24 Active loratadine (Claritin) 10 MG tabletIndications: Allergic conjunctivitis of both eyes Take 1 tablet (10 mg) by mouth Once per day. 90 tablet 07/20/19 24 Active Ozempic, 0.25 or 0.5 MG/DOSE, 2 MG/3ML solution pen-injectorIndica tions:Class 1 obesity due to excess calories with serious comorbidity and body mass index (BMI) of 33.0 to 33.9 in adult INJECT 0.5 MG SUBCUTANEOUSLY EVERY 7 DAYS IN THE ABDOMEN, THIGHS, OR UPPER ARM, ROTATE INJECTION SITES. 3 mL 28 09/20/19 24 Active amLODIPine (Norvasc) 5 MG tabletIndications: Elevated blood pressure reading Take 1 tablet (5 mg) by mouth Once per day. 30 tablet 11 01/03/20 24 025 Active famotidine (Pepcid) 20 MG tablet Take 1 tablet (20 mg) by mouth 2 times daily. 60 tablet 03/27/19 25 Active bacitracin-polymyx in b (Polysporin) ointment Apply topically 2 times daily. Apply to affected area daily 30 g 04/10/19 25 Active Eye Itch Relief 0.035 % solutionIndication s:Allergic conjunctivitis of both eyes PLACE 1 DROP INTO THE AFFECTED EYE(S) EVERY TWELVE HOURS NEEDED 10 mL 1 06/05/19 25 Active omeprazole (PriLOSEC) [address] capsuleIndications :Gastro-esophageal reflux disease without esophagitis TAKE 1 CAPSULE BY MOUTH EVERY DAY BEFORE BREAKFAST, DO NOT BREAK, CRUSH, DISSOLVE OR CHEW 90 capsule 1 09/26/19 25 Active Active Problems Problem Noted Date Diagnosed Date Elevated blood pressure reading 01/03/2024 Assessment & Plan (01/03/2024 11:32 AM EDT): Reports elevated blood pressures at home. BP at goal in clinic. -increased Amlodipine from 2.5 mg to 5 mg daily. -ER precautions discussed. Allergic conjunctivitis 07/20/2023 Assessment & Plan (07/20/2023 11:37 AM EDT): Avoid triggers Ketotifen and loratadine prescribed Class 1 obesity due to exces s calories with serious comorbidity and body mass index (BMI) of 33.0 to 33.9 in adult 07/20/2023 Assessment & Plan (07/20/2023 11:37 AM EDT): Today extensive discussion was done about life style modifications I advise healthy diet (low calorie) and cardiovascular exercise Patient is willing to pay out of pocket for semaglutide Primary insomnia 04/19/2023 Elevated LFTs 04/19/2023 Assessment & Plan (04/19/2023 11:01 AM EST): I will repeat labs and monitor Blurred vision 04/19/2023 Primary hypertension 04/19/2023 Assessment & Plan (07/20/2023 11:35 AM EDT): - Aerobic exercise to reduce BP. Initial goal of 30 min walk 3-5x/week. Increase as tolerated. - low-sodium diet (goal: <2g/day) and heart healthy diet such as DASH to reduce BP and prevent ASCVD. - Home BP monitoring 1-2 x day with goal of <140/90. - Seek immediate medical attention for chest pain, palpitations, SOB, syncope, or sudden changes in mental status. - Do not change or discontinue current prescriptions without first consulting health care provider Assessment & Plan (04/19/2023 11:01 AM EST): Maintenance: BMP: up to date Lipid Panel: ordered today ASCVD Risk: Calculate pending updated labs - Aerobic exercise to reduce BP. Initial goal of 30 min walk 3-5x/week. Increase as tolerated. - low-sodium diet (goal: <2g/day) and heart healthy diet such as DASH to reduce BP and prevent ASCVD. - Home BP monitoring 1-2 x day with goal of <140/90. - Seek immediate medical attention for chest pain, palpitations, SOB, syncope, or sudden changes in mental status. - Do not change or discontinue current prescriptions without first consulting health care provider Tinea versicolor 04/19/2023 Palpitations 11/24/2022 Assessment & Plan (01/03/2024 11:33 AM EDT): Seen inspector assembly on 12/09/22 loop recorder and echo ordered. Echo completed on 12/15/22 showing mildly enlarged right ventricle, mild septal left ventricular hypertrophy, normal EF(55-60%), and trace mitral regurgitation. Saw inspector assembly again on 01/01/23 and was told to f/u in 1 year. -given phone number to call cardiology 01/03/24 Chronic sinusitis 04/23/2022 Assessment & Plan (10/06/2022 5:19 PM EDT): Reports he has been using nasal spray oxymetazoline hcl daily. I explained to him that using that more than 3 days in a row is not recommended due to rebound. I prescribed him azelastine and told him to try and use the oxymetazoline in one nostril one day and they the other nostril the next day and to rotate back and forth like that for a week and then to stop using it all together. I explained that he has himself stuck in nasal congestion rebound because of the oxymetazoline and we need to get him off of that. Anxiety 02/16/2022 Assessment & Plan (01/03/2024 11:35 AM EDT): Given phone number for therapist follow-up 01/03/24 Gastroesophageal reflux disease 02/16/2022 Assessment & Plan (07/20/2023 11:35 AM EDT): I advise patient to avoid NSAIDs, spicy and acid food, I advise to eat at the same time every day, I advise to elevate the head of the bed and take medications as prescribe C/e omeprazole 20mg daily F/u with GI Opioid dependence, uncomplicated 02/16/2022 Resolved Problems Problem Noted Date Diagnosed Date Resolved Date Elevated blood pressure reading 05/27/2022 04/19/2023 Assessment & Plan (10/06/2022 5:14 PM EDT): BP appears to be well managed. Patient to log Bps so that I can see what his home BP looks like. F/up one month. Encounters Date Type Department Care Team Description 09/24/2024 Refill [facility] [address] [place] [address] Jessica Gibbs MD Gastro-esophageal reflux disease without esophagitis 08/10/2024 Telephone [facility] [address] [place] [phone] Jessica Gibbs MD No Show from Last 3 Months Immunizations Immunization Administration Dates Next Due Influenza injectable quadriv alent preservative free 04/19/2023,04/15/2020,11/11/2015 Influenza, IIV3, injectable 11/22/2011 Moderna Covid-19 Vaccine 12+ 07/07/2021,08/13/19 21,07/14/2020 Moderna Covid-19 Vaccine 6+ Bivalent 03/31/2022 Tdap 07/20/2023 Social History Tobacco Use Types Packs/Day Years Used Date Smoking Tobacco: Former Cigarettes Q uit: 2021 Passive Smoke Exposure: Past Smokeless Tobacco: Never Tobacco Cessation:Counseling Given: Not Answered Alcohol Use Standard Drinks/Week Comments Not Currently [...] not to disclose 2021 10:39 AM EDT Last Filed Vital Signs Vital Sign Reading Time Taken Comments Blood Pressure 139/89 01/03/2024 10:45 AM EDT Pulse 84 01/03/2024 10:45 AM EDT Temperature 36.6 C (97.9 F) 01/03/2024 10:45 AM EDT Respiratory Rate 18 01/03/2024 10:45 AM EDT Oxygen Saturation 97% 01/03/2024 10:45 AM EDT room air Inhaled Oxygen Concentration - - Weight 104 kg (230 lb) 01/03/2024 10:45 AM EDT Height 180.3 cm (5' 11 ) 01/03/2024 10:45 AM EDT Body Mass Index 32.08 01/03/2024 10:45 AM EDT Plan of Treatment Health Maintenance Due Date Last Done Comments Dental Oral Exam 1983 Dental Prophylaxis 1983 Dental X-Ray: Bitewings 1983 Dental X-Ray: Full Mouth 1983 Disability Screening 1983 Alcohol/Substance Use Screening 1995 Family Planning (PISQ) 1998 HPV Vaccines (1 - 3-dose series) 1998 Hepatitis B Vaccines (1 of 3 - 19+ 3-dose series) 2002 COVID-19 Vaccine ( season) 2023 03/31/2022, 07/07/2021, 08/12/2020, Additional history exists SDOH Screening 04/19/2024 04/19/2023 Depression Screening 07/19/2024 07/20/2023, 07/20/19 24 Influenza Vaccine (#1) 2024 , 04/15/2020, 11/11/2015, Additional history exists Tobacco Screening 03/27/2025 03/27/2024 Lipid Panel 06/02/2028 06/03/2023 Zoster Vaccines (1 of 2) 2033 DTaP/Tdap/Td Vaccines (2 - Td or Tdap) 07/19/2033 07/20/2023 RSV Patients and Patients Aged 60 years or older (1 - 1-dose 75+ series) 2058 HIV Screening Completed 12/03/2022, 12/01/2021 Hepatitis C Screening Completed 04/28/2023 , 12/03/2022, 12/01/2021 HIB Vaccines Aged Out No longer eligi [...] patient's age to complete this topic Meningococcal Vaccine Aged Out No isi kit eligible based on patient's age to complete this topic Pneumococcal Vaccine: Pediatrics (0 to 5 Years) and At-Risk Patients (6 to 49) Years Aged Out No longer eligible based on patient's age to complete this topic RSV under 20 months Aged Out No longe r eligible based on patient's age to complete this topic Rotavirus Vaccines Aged Out No longer eligible based on patient's age to complete this topic Procedures Procedure Name Priority Date/Time Associated Diagnosis Comments BASIC METABOLIC PANEL Routine 11/07/2024 10:01 PM EDT Gastroesophageal reflux disease, unspecified whether esophagitis present CBC WITH AUTO DIFFERENTIAL Routine 11/07/2024 10:01 PM EDT Gastroesophageal reflux disease, unspecified whether esophagitis present LIPID PANEL, STANDARD Routine 06/03/2023 10:42 AM EDT Elevated LFTs HEPATITIS PANEL, GENERAL Routine 04/28/2023 10:51 AM EST Elevated LFTs HIV ANTIBODY/ANTIGEN ([place] [facility]) Routine 12/03/2022 11:22 AM EDT from Last 3 Months or Most Recently Relevant to Health Maintenance Results * (ABNORMAL) CBC auto differential (11/07/2024 10:01 PM EDT) White Blood Count 14.5(H) 4.8 - 10.8 X10*3/uL [facility] Red Blood Count 5.03 4.60 - 5.80 X10*6/uL [facility] Hemoglobin 13.6(L) 14.0 - 18.0 g/dl [facility] Hematocrit 40.0(L) 42.0 - 52.0 % [facility] Mean Corpuscular Volume 79.5(L) 80.0 - 98.0 fL [facility] Mean Corpuscular Hemoglobin 27.0 27.0 - 33.0 pg [facility] Mean Corpuscular HGB Conc 34.0 31.0 - 36.0 g/dl [facility] Red Cell Distribution Width 13.4 11.0 - 16.0 % [facility] Platelet Count 365 160 - 400 X10*3/uL [facility] Mean Platelet Volume 9.4 9.4 - 12.4 fL [facility] Neutrophils Percent Auto 62.1 45 - 73 % [facility] Imm Gran Pct Auto 0.8(H) 0.0 - 0.4 % [facility] Lymphocytes Percent Auto 27.5 20 - 40 % [facility] Monocytes Percent Auto 6.5 2 - 11 % [facility] Eosinophils Percent Auto 2.8 0 - 4 % [facility] Basophils Percent Auto 0.3 0 - 2 % [facility] NRBC Pct Auto 0.0 0.0 - 0.2 /100WBC [facility] Neutrophils Absolute Auto 9.0(H) 2.0 - 8.3 x10*3/uL [facility] Imm Gran Abs Auto 0.11(H) 0.00 - 0.03 X10*3/uL [facility] Lymphocytes Absolute Auto 4.0 1.2 - 4.9 X10*3/uL [facility] Monocytes Absolute Auto 0.9 0.1 - 1.2 X10*3/uL [facility] Eosinophils Absolute Auto 0.4 0.0 - 0.4 X10*3/uL [facility] Basophils Absolute Auto 0.1 0.0 - 0.2 X10*3/uL [facility] NRBC Abs Auto 0.000 0.0 - 0.012 X10*3/uL [facility] 11/07/2024 10:0 1 PM EDT 11/07/2024 10:04 PM EDT us Generic External Data Provider LAB BLOOD ORDERAB LES Final Result [facility] [address] [place] [phone] * (ABNORMAL) Basic Metabolic Panel (11/07/2024 10:01 PM EDT) Sodium 137 135 - 145 mmol/L [facility] Potassium 4.2 3.3 - 5.1 mmol/L [facility] Chloride 105 96 - 108 mmol/L [facility] Carbon Dioxide 23 22 - 29 mmol/L [facility] Anion Gap 13 12 - 20 [facility] Urea Nitrogen (BUN) 15 9 - 16 mg/dL [facility] Creatinine, Serum 1.06 0.5 - 1.4 mg/dL [facility] Creatinine Clr Calc Pharmacy 117.2 [facility] Comment:eGFR (calculated fro m the MDRD study equation) and eCrCl(calculated from the Cockcroft-Gault equation) are based ondifferent parameters and may not yield comparable results.If eCrCl result is absurd, please check patient'sheight/weight. Estimated Glomerular Filt Rate >60 [facility] Comment:Chronic Kidney Disea se: Estimated GFR < 60 mL/min/1.75h2Dmxtvv Kidney Disease: Estimated GFR < 15 mL/min/1.73m2 Glucose 120(H) 60 - 115 mg/dL [facility] Calcium 9.0 8.4 - 10.2 mg/dL [facility] 11/07/2024 10:0 1 PM EDT 11/07/2024 10:04 PM EDT us Generic External Data Provider LAB BLOOD ORDERAB LES Final Result Performing Organization Address [facility]/ZIP Co de Phone Number [facility] [address] [place] [phone] * (ABNORMAL) Lipid Panel, Standard (06/03/2023 10:42 AM EDT) Triglycerides 111 <150 mg/dL [facility] Comment:Desirable Triglyceri de: less than 150 mg/dLBorderline High Triglyceride 150-199 mg/dLHigh Triglyceride: 200-499 mg/dLVery High Triglyceride: greater than or equal to 5OO mg/dL Cholesterol 127 <200 mg/dL [facility] Comment:Desirable Cholestero l: less than 200 mg/dLBorderline High Cholesterol: 200-239 mg/dLHigh Cholesterol: greater than 239 mg/dL LDL Cholesterol Calculated 69 <100 mg/dL [facility] Comment:Desirable LDL: less than 100 mg/dLNear Optimal/Above Optimal LDL: 110- 129 mg/dLBorderline High LDL: 130-159 mg/dLHigh LDL: 160-189 mg/dLVery High LDL: greater than or equal to 190 mg/dL HDL Cholesterol 36(L) >40 mg/dL [facility] Comment:Desirable HDL: great er than 40 mg/dL Note: This HDL assay may give artificially low results in patients with liver disease. Blood Venous blood specimen / Unknown 06/03/2023 10:42 AM EDT 06/03/2023 11:14 AM EDT us Jessica Coffey MD LAB BLOOD ORDERABLES Final Result Performing Organization Address [facility]/ZIP Co de Phone Number [facility] [address] [place] [phone] * Hepatitis Panel, General (04/28/2023 10:51 AM EST) Hepatitis A IgM Nonreactive Nonreactive [facility] Comment:IgM antibodies to DASILVA V not detected; does not exclude earlyacute or recovered HAV infection. ~Hepatitis B Surface Antibody REACTIVE Nonreactive [facility] Comment:REACTIVE: > 11.99 mI U/mL Hepatitis B Core Antibody Nonreactive Nonreactive [facility] Hepatitis C Antibody Nonreactive Nonreactive [facility] Comment:Antibodies to HCV no t detected; does not exclude early acuteHCV infection. Hepatitis B Surface Ag Negative Negative [facility] Blood 04/28/2023 10:5 1 AM EST 04/28/2023 11:23 AM EST us Jessica Coffey MD LAB BLOOD ORDERABLES Final Result Performing Organization Address [facility] Co de Phone Number [facility] [address] [place] [phone] * HIV Ab/Ag ([facility]) (12/03/2022 11:22 AM EDT) Pathologist [facility] HIV AB/AG Nonreactive Nonreactive [facility] Comment:HIV-1 p24 Ag and/or HIV-1/HIV-2 Ab not detected.A test result that is nonreactive does not exclude thepossibility of exposure to or infection with HIV-1 and/orHIV-2. Nonreactive results in this assay for individualswith prior exposure to HIV-1 and/or HIV-2 may be due toantigen and antibody levels that are below the limit ofdetection of this assay.The [facility] HIV Ag/Ab Combo assay result andsupplemental assay results should be interpreted inconjunction with the patient's clinical presentation,history and other laboratory results. If the results areinconsistent with clinical evidence, additional testing issuggested to confirm the result. 12/03/2022 11:2 2 AM EDT 12/03/2022 1:06 PM EDT us Benson Tesfaye MD LAB BLOOD ORDERABLES Final Resul t Performing Organization Address City/[facility]/ZIP Co de Phone Number [facility] [address] [place] [phone] from Last 3 Months or Most Recently Relevant to Health Maintenance Insurance [facility] C3 Care Teams [employer] Relationship Specialty Start Date End Date Jessica Gibbs MD [address] [place], [place] PCP - General Internal Medicine 04/19/23
--- NOTE | 2024-11-08 01:18 | ED_ITS ---
HPI - General Adult General Chief complaint: Skin/Abscess/Foreign Body Stated complaint: rash in leg Time Seen by Provider: 11/08/24 01:16 Source: patient Mode of arrival: ambulatory Limitations: language barrier History of Present Illness ED Provider: Dr. Caceres HPI narrative: 39-year-old male just got back from [place]. Patient has right-sided groin pain and swelling. Patient stated that she was in [place] this past weekend when he had jock itch around his pannus. Patient did use the spray which did improve however he when he was shaving he did cause some redness in the skin and irritability. However he noticed that his right groin has been more swollen and painful to touch. Denies any fever. Related Data Home Medications ?Medication ?Instructions ?Recorded ?Confirmed amlodipine 2.5 mg tablet 2.5 mg PO DAILY 05/10/23 azelastine 137 mcg (0.1 %) nasal 1 spray intranasal BI D 05/25/23 spray buprenorphine 8 mg-naloxone 2 mg 10 mg sublingual Q12H 05/25/23 sublingual film (Suboxone) bupropion HCl 150 mg 24 hr tablet, 150 mg PO QAM 05/24 extended release loratadine 10 mg tablet 10 mg PO DAILY 05/25/23 melatonin 5 mg tablet 5 mg PO BEDTIME 05/25/23 sucralfate 1 gram tablet 1 g PO TID 05/25/23 Previous Rx's ?Medication ?Instructions ?Recorded benzonatate 200 mg capsule 200 mg PO TID PRN cough #30 caps 11/27/21 hydroxyzine HCl 25 mg tablet 25 mg PO ONCE PRN anxiety #14 tabs 02/26/22 omeprazole 20 mg capsule,delayed 20 mg PO BID 30 days #60 caps 04/21/23 release bismuth subsalicylate 262 mg 2 tab PO QID 14 days #112 tabs 05/25/23 chewable tablet metronidazole 250 mg tablet 250 mg PO QID 14 days #56 tabs 05/25/23 omeprazole 20 mg capsule,delayed 20 mg PO BID 14 days #28 caps 05/25/23 release tetracycline 500 mg capsule 500 mg PO QID 14 days #56 caps 05/25/23 cephalexin 500 mg capsule 500 mg PO TID 7 days #21 cap s 11/08/24 doxycycline hyclate 100 mg capsule 100 mg PO BID 7 day s #14 caps 11/08/24 Allergies Allergy/AdvReac Type Severity Reaction Status Date / Time No Known Allergies (No Known Allergy Verified 11/07/24 21:48 Allergies*) Review of Systems 2 Review of Systems: Pertinent review of systems as mentioned in HPI. All other system otherwise negative. [facility] Past Medical History [facility] Narrative: Medical history as mentioned in HPI Medical History Anxiety Fatty liver Sinusitis HTN (hypertension) Viral upper respiratory tract infection with cough Hand numbness Physical exam Left calcaneal fracture Left foot pain Nausea GERD (gastroesophageal reflux disease) Overweight Blurry vision Neck pain Shoulder pain Cough Smoker Surgical History No pertinent past surgical history Family History Family History Father Cirrhosis of liver Mother Diabetes Social History Social History Housing: Apartment Alcohol intake: never Patient Tobacco Use Status: Former Tobacco user Tobacco use type: Cigarette Cigarettes Per Day: 10 e-Cigarette/Vaping Use: Never Used Second Hand Smoke Exposure: No Advance Directives: No Advance Directives Information Provided: Yes service: No Current occupational status: other Physical Exam ED Exam Exam: General: Pleasant, no distress, interacting appropriately Head: Normacephalic, atraumatic : Patient's groin does have a small abscess over the superior part of his right pubis. Vital Signs: Vital Signs - 24 hr 11/07/24 21:46 11/08/24 02:16 Temperature 98.9 F 98.0 F Pulse Rate 102 H 100 Respiratory Rate 18 16 Blood Pressure 129/82 146/98 H Pulse Oximetry 94 95 Oxygen Delivery Method Room Air Room Air BMI result Body Mass Index 34.7 Medications Administered Discontinued Medications Generic Name Dose Route Start Last Admin Trade Name Freq PRN Reason Stop Dose Admin Acetaminophen 975 mg 11/08/24 01:28 11/08/24 01:37 Acetaminophen 325 Mg Tablet PO 11/08/24 01:29 975 mg ONCE ONE Administration Doxycycline Monohydrate 100 mg 11/08/24 01:25 11/08/24 01:37 Doxycycline Monohydrate 100 Mg Capsule PO 11/08/24 01:26 100 mg ONCE ONE Administration Medical Decision Making Medical Decision Making [facility] Narrative: 39-year-old male presented hospital today for evaluation of abscess of the right pubis. I suspect his abscesses likely secondary from shaving injury versus an ingrown hair. I did discuss the patient that I recommend him to drain it. Patient does not want me to drain his abscess at this time. He would prefer to try antibiotic for it. Patient states he is too tired to go through this procedure. We will plan to discharge patient on Keflex and doxycycline. For antibiotic coverage. Patient's lab work did show some leukocytosis at 14. However I do not think he has sepsis. We will plan to discharge patient at this time with antibiotic. Return precautions provided to patient to return to ER if he does not feel well. Patient states he will come back for drainage at another time. In-person educational interpreter was used for this encounter. Differential Diagnosis Differential Diagnoses: The differential diagnosis associated with the presentation includes Abscess, cellulitis, folliculitis Lab Data [facility] Lab Attestation statement: I reviewed the patient's lab results. 11/07/24 22:01 11/07/24 22:01 Labs: Lab Results 11/07/24 Range/Units 22:01 WBC 14.5 H (4.8-10.8) X10*3/uL RBC 5.03 (4.60-5.80) X10*6/uL Hgb 13.6 L (14.0-18.0) g/dl Hct 40.0 L (42.0-52.0) % MCV 79.5 L (80.0-98.0) fL MCH 27.0 (27.0-33.0) pg MCHC 34.0 (31.0-36.0) g/dl RDW 13.4 (11.0-16.0) % Plt Count 365 (160-400) X10*3/uL MPV 9.4 (9.4-12.4) fL Immature Gran % (Auto) 0.8 H (0.0-0.4) % Neut % (Auto) 62.1 (45-73) % Lymph % (Auto) 27.5 (20-40) % Perkins % (Auto) 6.5 (2-11) % Eos % (Auto) 2.8 (0-4) % Baso % (Auto) 0.3 (0-2) % Lymph # (Auto) 4.0 (1.2-4.9) X10*3/uL Perkins # (Auto) 0.9 (0.1-1.2) X10*3/uL Eos # (Auto) 0.4 (0.0-0.4) X10*3/uL Baso # (Auto) 0.1 (0.0-0.2) X10*3/uL Abs Immat Gran (auto) 0.11 H (0.00-0.03) X10*3/uL Absolute Neuts (auto) 9.0 H (2.0-8.3) x10*3/uL Absolute Nucleated RBC 0.000 (0.0-0.012) X10*3/uL Nucleated RBC % (auto) 0.0 (0.0-0.2) /100WBC Sodium 137 (135-145) mmol/L Potassium 4.2 (3.3-5.1) mmol/L Chloride 105 (96-108) mmol/L Carbon Dioxide 23 (22-29) mmol/L Anion Gap 13 (12-20) BUN 15 (9-16) mg/dL Creatinine 1.06 (0.5-1.4) mg/dL Estim Creat Clear Calc 117.2 Estimated GFR > 60 Random Glucose 120 H (60-115) mg/dL Calcium 9.0 (8.4-10.2) mg/dL Discharge Plan Discharge Clinical Impression: Abscess Patient Disposition: Home, Self-Care Instructions: Abscess (ED) Prescriptions: New doxycycline hyclate 100 mg capsule 100 mg PO BID 7 Days Qty: 14 0RF cephalexin 500 mg capsule 500 mg PO TID 7 Days Qty: 21 0RF No Action omeprazole 20 mg capsule,delayed release(DR/EC) 20 mg PO BID 30 Days Qty: 60 3RF hydroxyzine HCl 25 mg tablet 25 mg PO ONCE PRN (Reason: anxiety) Qty: 14 0RF amlodipine 2.5 mg tablet 2.5 mg PO DAILY benzonatate 200 mg capsule 200 mg PO TID PRN (Reason: cough) Qty: 30 0RF buprenorphine-naloxone [Suboxone] 8-2 mg film 10 mg sublingual Q12H melatonin 5 mg tablet 5 mg PO BEDTIME azelastine 137 mcg (0.1 %) aerosol,spray 1 spray intranasal BID sucralfate 1 gram tablet 1 g PO TID bupropion HCl 150 mg tablet extended release 24 hr 150 mg PO QAM loratadine 10 mg tablet 10 mg PO DAILY tetracycline 500 mg capsule 500 mg PO QID 14 Days Qty: 56 0RF metronidazole 250 mg tablet 250 mg PO QID 14 Days Qty: 56 0RF bismuth subsalicylate 262 mg tablet,chewable 2 tab PO QID 14 Days Qty: 112 0RF omeprazole 20 mg capsule,delayed release(DR/EC) 20 mg PO BID 14 Days Qty: 28 0RF Interventions: ED Discharge Assessment Last Done: 11/08/24 02:16 Discharge Date/Time: 11/08/24 02:17 Print Language: Polish
[2024-11-08 02:16] VITALS: BP 146/98; PULSE 100; RESP 16; TEMP 36.7; O2SAT 95
== END 2024-11-08 02:17 | disposition home or self-care (01) ==
PROVIDERS: Emergency Provider Student in an Organized Health Care Education/Training Program; PCP Internal Medicine
DX: L02.214 Cutaneous abscess of groin (principal)
CPT/HCPCS: 36415; 80048; 85025; 99283

== ENCOUNTER 2025-02-18 10:33 | Outpatient (REF) | payer MEDICAID, SELFPAY ==
[2025-02-18 13:46] LABS: MANUAL DIFF FLAG NO
[2025-02-18 13:49] LABS: Hematocrit 43.1 % (42.0-52.0); Hemoglobin 14.0 g/dl (14.0-18.0); Imm Gran Abs Auto 0.04 X10*3/uL (0.00-0.03); Imm Gran Pct Auto 0.5 % (0.0-0.4); Lymphocytes Absolute Auto 2.3 X10*3/uL (1.2-4.9); Mean Corpuscular HGB Conc 32.5 g/dl (31.0-36.0); Mean Corpuscular Hemoglobin 26.3 pg (27.0-33.0); Mean Corpuscular Volume 80.9 fL (80.0-98.0); NRBC Abs Auto 0.000 X10*3/uL (0.0-0.012); NRBC Pct Auto 0.0 /100WBC (0.0-0.2); Platelet Count 376 X10*3/uL (160-400); Red Blood Count 5.33 X10*6/uL (4.60-5.80); White Blood Count 8.9 X10*3/uL (4.8-10.8)
[2025-02-18 14:27] LABS: Alanine Aminotransferase 109 U/L (0-40); Albumin Level 4.8 g/dL (3.5-5.0); Alkaline Phosphatase 131 U/L (39-117); Anion Gap 10 (12-20); Aspartate Amino Transferase 58 U/L (5-37); Blood Urea Nitrogen 21 mg/dL (9-16); Calcium 9.5 mg/dL (8.4-10.2); Carbon Dioxide 27 mmol/L (22-29); Chloride 107 mmol/L (96-108); Cholesterol 170 mg/dL (<200); Estimated Glomerular Filt Rate > 60; HDL Cholesterol 40 mg/dL (>40); Hemoglobin A1C 150.1388 umol/L; Potassium 4.5 mmol/L (3.3-5.1); Sodium 139 mmol/L (135-145); Total Protein 7.9 g/dL (6.5-8.0); Triglycerides 98 mg/dL (<150)
[2025-02-19 04:47] LABS: HIV Num 1 0.05 S/CO (0.00-0.99); ~HepC Num1 0.10 S/CO (0.00-0.79); ~Hepatitis C Antibody Nonreactive (Nonreactive)
== END 2025-02-18 10:34 | disposition home or self-care (01) ==
LOC: HO.HHCL 10:33
PROVIDERS: Emergency Medicine; PCP Internal Medicine; Visit Provider Internal Medicine
DX: Z11.4 Encounter for screening for human immunodeficiency virus [HIV] (principal); Z11.59 Encounter for screening for other viral diseases; K21.9 Gastro-esophageal reflux disease without esophagitis; Z68.36 Body mass index [BMI] 36.0-36.9, adult; E66.812 Obesity, class 2
CPT/HCPCS: 36415; 80053; 80061; 82306; 83036; 84443; 85025; 86803; 87338; 87389